=== PATIENT | female | born 1985 | race African-American/Black ===

== ENCOUNTER 2017-02-20 19:43 | Emergency (ER) | payer MEDICAID, OTHER ==
[2017-02-20] MEDS ORDERED: Ketorolac 60 MG/2 ML SDV IM ONE (19:58)
--- NOTE | 2017-02-20 20:02 | EDM.PDOC ---
ED HPI GENERAL MEDICAL PROBLEM - General Chief Complaint: Back Pain or Injury Stated Complaint: BACK PAIN Time Seen by Provider: 02/20/17 19:56 - History of Present Illness INITIAL COMMENTS - FREE TEXT/NARRATIVE: HISTORY AND PHYSICAL: History of present illness: Patient 31-year-old female presents a concern of mid upper back pain related sleeping on a pallet that she may due to her recent move here she denies numbness weakness incontinence or retention bowel or bladder other concern. Review of systems: As per history of present illness and below otherwise all systems reviewed and negative. Past medical history: As per history of present illness and as reviewed below otherwise noncontributory. Surgical history: As per history of present illness and as reviewed below otherwise noncontributory. Social history: No reported history of drug or alcohol abuse. Family history: As per history of present illness and as reviewed below otherwise noncontributory. Physical exam: HEENT: Atraumatic, normocephalic, pupils reactive, negative for conjunctival pallor or scleral icterus, mucous membranes moist, throat clear, neck supple, nontender, trachea midline. Lungs: Clear to auscultation, breath sounds equal bilaterally, chest nontender. Heart: S1S2, regular, negative for clicks, rubs, or JVD. Abdomen: Soft, nondistended, nontender. Negative for masses or hepatosplenomegaly. Negative for costovertebral tenderness. Pelvis: Stable nontender. Genitourinary: Deferred. Rectal: Deferred. Extremities: Atraumatic, negative for cords or calf pain. Neurovascular unremarkable. Neuro: Awake, alert, oriented. Cranial nerves II through XII unremarkable. Cerebellum unremarkable. Motor and sensory unremarkable throughout. Exam nonfocal. Back: Patient has some mild paravertebral tenderness at the level of upper thoracic spine there is no vertebral body or point tenderness patient's able stand on her toes back on her heels the tendon reflexes motor and sensory are normal Diagnostics: None Therapeutics: Toradol 60 mg IM Impression: #1 myofascial thoracic strain Definitive disposition and diagnosis as appropriate pending reevaluation and review of above. Right Back Pain Score (Numeric/FACES): 8 - Related Data Allergies Allergy/AdvReac Type Severity Reaction Status Date / Time No Known Allergies Allergy Verified 02/20/17 19:55 Home Meds: Home Meds . 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 ED EXAM, GENERAL - Physical Exam Exam: See Below (See dictation) Course - Vital Signs Last Recorded V/S: Last Vital Signs Temp 36.8 C 02/20/17 19:51 Pulse 102 H 02/20/17 19:51 Resp 17 02/20/17 19:51 BP 143/91 H 02/20/17 19:51 Pulse Ox 98 02/20/17 19:51 - Orders/Labs/Meds Meds: Medications Discontinued Medications Generic Name Dose Route Start Last Admin Trade Name Huseyin PRN Reason Stop Dose Admin Ketorolac Tromethamine 60 mg 02/20/17 19:58 Toradol IM 02/20/17 19:59 ONETIME ONE Departure - Departure Time of Disposition: 20:02 Disposition: Home, Self-Care 01 Condition: Good Clinical Impression: Thoracic myofascial strain - Discharge Information Referrals: PCP,None [Primary Care Provider] - Additional Instructions: The following information is given to patients seen in the emergency department who are being discharged to home. This information is to outline your options for follow-up care. We provide all patients seen in our emergency department with a follow-up referral. The need for follow-up, as well as the timing and circumstances, are variable depending upon the specifics of your emergency department visit. If you don't have a primary care physician on staff, we will provide you with a referral. We always advise you to contact your personal physician following an emergency department visit to inform them of the circumstance of the visit and for follow-up with them and/or the need for any referrals to a consulting specialist. The emergency department will also refer you to a specialist when appropriate. This referral assures that you have the opportunity for followup care with a specialist. All of these measure are taken in an effort to provide you with optimal care, which includes your followup. Under all circumstances we always encourage you to contact your private physician who remains a resource for coordinating your care. When calling for followup care, please make the office aware that this follow-up is from your recent emergency room visit. If for any reason you are refused follow-up, please contact the [facility] emergency department at and asked to speak to the emergency department charge nurse [facility] [address] [place] [id number] Ultram and Flexeril as prescribed called schedule appointment with primary care clinic about return as needed as discussed[]
== END 2017-02-20 20:20 | disposition home or self-care (01) ==
LOC: MW.ED 19:43
DX: S29.012A Strain of muscle and tendon of back wall of thorax, initial encounter (principal); X58.XXXA Exposure to other specified factors, initial encounter
CPT/HCPCS: 96372; 99283; J1885

== ENCOUNTER 2017-06-02 18:58 | Emergency (ER) | payer MEDICAID, OTHER ==
[2017-06-02] MEDS ORDERED: Proparacaine 0.5% Ophth Soln 15 ML Bottle EYEBOTH ONE (19:20)
--- NOTE | 2017-06-02 19:24 | EDM.PDOC ---
ED HPI GENERAL MEDICAL PROBLEM - General Chief Complaint: Eye Problems Stated Complaint: PAIN/SWELLING EYES Time Seen by Provider: 06/02/17 19:16 - History of Present Illness INITIAL COMMENTS - FREE TEXT/NARRATIVE: HISTORY AND PHYSICAL: History of present illness: The patient is a 31-year-old female who wears contact lenses but cleans them regularly and has eye exams yearly and presents with sudden onset of bilateral eye pain or itching and swelling and eyelid swelling. Patient says she doesn't recall anything getting into her eyes but she was at a friend's house and they have hats but she has never had an issue with pet dander. She said initially it was in her right eye and now it is bilateral. She has removed her contact lenses and she still feels like her eyes are watering and discomforting. She has been rubbing them and they're itchy. She has no other systemic complaints. Review of systems: As per history of present illness and below otherwise all systems reviewed and negative. Past medical history: As per history of present illness and as reviewed below otherwise noncontributory. Surgical history: As per history of present illness and as reviewed below otherwise noncontributory. Social history: No reported history of drug or alcohol abuse. Family history: As per history of present illness and as reviewed below otherwise noncontributory. Physical exam: Gen.: Well-developed mildly overweight female who is nontoxic and vital signs been reviewed by me. HEENT: Atraumatic, normocephalic, pupils reactive, EOMs are intact, sclera are injected bilaterally as are conjunctiva, negative for conjunctival pallor or scleral icterus, mucous membranes moist, throat clear, neck supple, nontender, trachea midline. Visual acuity per nursing is as below. Upper eyelids are swollen bilaterally but there is no periorbital erythema or edema and no crepitus. Lungs: Clear to auscultation, breath sounds equal bilaterally, chest nontender. Heart: S1S2, regular rate and rhythm no overt murmurs Abdomen: Soft, nondistended, nontender. NABS Pelvis: Deferred Genitourinary: Deferred. Rectal: Deferred. Extremities: Atraumatic, negative for cords or calf pain. Neurovascular unremarkable. Neuro: Awake, alert, oriented. Cranial nerves II through XII unremarkable. Cerebellum unremarkable. Motor and sensory unremarkable throughout. Exam nonfocal. Diagnostics: Visual acuity per nursing is 20/20 throughout Therapeutics: Proparacaine After proparacaine was placed fluoroscein stain was performed by me. There is a slight uptake at the inferior rim of the iris bilaterally but more on the left side. Fluoroscein was irrigated out by me. The patient tolerated the procedure well 1950: Case was discussed with Dr. Anne who will see the patient tomorrow at 1 PM in the clinic and does recommend eyedrops and I will prescribe Vigamox Impression: Bilateral eye irritation, rule out iritis, history of contact lens use Definitive disposition and diagnosis as appropriate pending reevaluation and review of above. bilateral eye Pain Score (Numeric/FACES): 6 - Related Data Allergies Allergy/AdvReac Type Severity Reaction Status Date / Time No Known Allergies Allergy Verified 06/02/17 19:01 Home Meds: Home Meds . 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 ED EXAM GENERAL W FULL EYE - Physical Exam Exam: See Below (see dictation) Course - Vital Signs Last Recorded V/S: Last Vital Signs Temp 36.8 C 06/02/17 18:58 Pulse 82 06/02/17 18:58 Resp 18 06/02/17 18:58 BP 167/103 H 06/02/17 18:58 Pulse Ox 97 06/02/17 18:58 - Orders/Labs/Meds Meds: Medications Discontinued Medications Generic Name Dose Route Start Last Admin Trade Name Freq PRN Reason Stop Dose Admin Proparacaine HCl 2 ml 06/02/17 19:20 06/02/17 19:43 Proparacaine 0.5% Ophth Soln EYEBOTH 06/02/17 19:21 2 ml ONETIME ONE Administration Departure - Departure Time of Disposition: 19:53 Disposition: Home, Self-Care 01 Condition: Good Clinical Impression: Uses contact lenses Eye pain Qualifiers: Laterality: bilateral Qualified Code(s): H57.13 - Ocular pain, bilateral - Discharge Information Referrals: PCP,None [Primary Care Provider] - Forms: ED Department Discharge Additional Instructions: The following information is given to patients seen in the emergency department who are being discharged to home. This information is to outline your options for follow-up care. We provide all patients seen in our emergency department with a follow-up referral. The need for follow-up, as well as the timing and circumstances, are variable depending upon the specifics of your emergency department visit. If you don't have a primary care physician on staff, we will provide you with a referral. We always advise you to contact your personal physician following an emergency department visit to inform them of the circumstance of the visit and for follow-up with them and/or the need for any referrals to a consulting specialist. The emergency department will also refer you to a specialist when appropriate. This referral assures that you have the opportunity for followup care with a specialist. All of these measure are taken in an effort to provide you with optimal care, which includes your followup. Under all circumstances we always encourage you to contact your private physician who remains a resource for coordinating your care. When calling for followup care, please make the office aware that this follow-up is from your recent emergency room visit. If for any reason you are refused follow-up, please contact the [facility] emergency department at and ask to speak to the emergency department charge nurse. [facility]--Opthamology [address] [place] [address] Please do not wear contact lenses until you're followed up by the environmental services coordinator. Use all medications as prescribed. He been given Vigamox eyedrops. Dr. Anne was notified of your case and he will see you in his clinic tomorrow across the street at [facility] at 1 PM. Please arrive at 12 :30 PM to register and do the paperwork.. Return to ER as needed and as discussed. These try to avoid bright lights
== END 2017-06-02 20:06 | disposition home or self-care (01) ==
LOC: MW.ED 18:58
DX: H57.13 Ocular pain, bilateral (principal)
CPT/HCPCS: 99283; 99284

== ENCOUNTER 2017-08-01 13:13 | Emergency (ER) | payer MEDICAID ==
[2017-08-01] MEDS ORDERED: Ondansetron 4 MG/2 ML SDV IVPUSH ONE (13:43)
[2017-08-01] MEDS ORDERED: Sodium Chloride 0.9% 1,000 ML IV ONE (13:43)
--- NOTE | 2017-08-01 13:49 | EDM.PDOC ---
ED HPI GENERAL MEDICAL PROBLEM - General Chief Complaint: General Stated Complaint: DIZZY Time Seen by Provider: 08/01/17 13:38 Source of Information: Reports: Patient History Limitations: Reports: No Limitations - History of Present Illness INITIAL COMMENTS - FREE TEXT/NARRATIVE: HISTORY AND PHYSICAL: Dizziness History of present illness: Patient is a 32-year-old female who presents to the emergency room with complaints of dizziness, nausea and one episode of vomiting that occurred early this morning. Just generally feels unwell since waking up. Reports that she missed her last Depo shot in April and has not had a menses cycle since that time but feels that she is not . Has not taken any tests at home. She denies any of her, chills, chest pain or shortness of breath. She denies any abdominal pain real or constipation. Denies any drug or alcohol abuse. Review of systems: As per history of present illness and below otherwise all systems reviewed and negative. Past medical history: As per history of present illness and as reviewed below otherwise noncontributory. Surgical history: As per history of present illness and as reviewed below otherwise noncontributory. Social history: No reported history of drug or alcohol abuse. Family history: As per history of present illness and as reviewed below otherwise noncontributory. Physical exam: General: Well-developed and well-nourished 32-year-old -[place] female. Alert and oriented. Nontoxic appearing and in no acute distress. HEENT: Atraumatic, normocephalic, pupils equal and reactive bilaterally, negative for conjunctival pallor or scleral icterus, mucous membranes moist, throat clear, neck supple, nontender, trachea midline. No drooling or trismus noted. No meningeal signs Lungs: Clear to auscultation, breath sounds equal bilaterally, chest nontender. Heart: S1S2, regular rate and rhythm without overt murmur Abdomen: Soft, nondistended, nontender. Negative for masses or hepatosplenomegaly. Negative for costovertebral tenderness. Pelvis: Stable nontender. Genitourinary: Deferred. Rectal: Deferred. Skin: Intact, warm, dry. No lesions or rashes noted. Extremities: Atraumatic, negative for cords or calf pain. Neurovascular unremarkable. Neuro: Awake, alert, oriented. Cranial nerves II through XII unremarkable. Cerebellum unremarkable. Motor and sensory unremarkable throughout. Exam nonfocal. Notes: Patient is very vague in her symptoms. Well do routine lab work including a urine . She is agreeable to receiving IV fluids and Zofran. Patient is positive for . I did inform her of this. A Quant HCG was done which was 6, 843. Appears she has a UTI. Other lab work was within normal limits. Please her on Augmentin 500 mg one tab twice a day 7 days. A urine culture was added. We discussed care. She states she has had 7 previous pregnancies, she will follow-up with an [employer] EN[employer]. Diagnostics: CBC, CMP, orthostatic vital signs, UA, urine , EKG Therapeutics: Normal saline, Zofran Impression: Dizziness UTI Plan: 1. Please start a vitamin daily. Take your antibiotic as discussed for the UTI. 2. Increase your oral fluids to prevent dehydration. Tylenol is safe to take during for pain management. 3. Establish care with a local [employer] ENGL[employer] for further evaluation of your needs. 4. Return to the ER as needed and as discussed. Definitive disposition and diagnosis as appropriate pending reevaluation and review of above. Onset: Today Duration: Hour(s): Location: Reports: Generalized Lower Abdomen Pain Score (Numeric/FACES): 5 - Related Data Allergies Allergy/AdvReac Type Severity Reaction Status Date / Time No Known Allergies Allergy Verified 08/01/17 13:33 Home Meds: Home Meds . [No Known Home Meds] 02/20/17 [History] Past Medical History - Past Health History Medical/Surgical History: Denies Medical/Surgical History Genitourinary History: Reports: None [employer] History: Reports: - Infectious Disease History Infectious Disease History: Reports: Chicken Pox Social & Family History - Family History Family Medical History: Noncontributory - Tobacco Use Smoking Status *Q: Never Smoker Second Hand Smoke Exposure: No - Caffeine Use Caffeine Use: Reports: Coffee, Soda - Recreational Drug Use Recreational Drug Use: No ED ROS GENERAL - Review of Systems Review Of Systems: ROS reveals no pertinent complaints other than HPI. ED EXAM, GENERAL - Physical Exam Exam: See Below Course - Vital Signs Last Recorded V/S: Last Vital Signs Temp 97.1 F 08/01/17 13:30 Pulse 97 08/01/17 13:30 Resp 20 08/01/17 13:30 BP 139/90 08/01/17 13:30 Pulse Ox 100 08/01/17 13:30 Orthostatic Blood Pressure [ 137/91 Standing] Orthostatic Blood Pressure [ 131/97 Sitting] Orthostatic Blood Pressure [ 132/89 Supine] - Orders/Labs/Meds Orders: Active Orders 24 hr Category Date Time Status EKG Documentation Completion [RC] STAT Care 08/01/17 13:40 Active Orthostatic Vital Signs [RC] ASDIRECTED Care 08/01/17 13:39 Active CULTURE URINE [RM] Stat Lab 08/01/17 15:33 Ordered HCG QUALITATIVE,URINE [URCHEM] Stat Lab 08/01/17 13:50 Ordered INFLUENZA A+B AG SCREEN [RM] Stat Lab 08/01/17 13:50 Ordered UA W/MICROSCOPIC [URIN] Stat Lab 08/01/17 13:50 Ordered Labs: Laboratory Tests 08/01/17 08/01/17 08/01/17 Range/Units 13:50 13:50 14:00 WBC 6.55 (4.0-11.0) K/uL RBC 4.99 (4.30-5.90) M/uL Hgb 15.1 (12.0-16.0) g/dL Hct 42.3 (36.0-46.0) % MCV 84.8 (80.0-98.0) fL MCH 30.3 (27.0-32.0) pg MCHC 35.7 (31.0-37.0) g/dL RDW Std Deviation 40.4 (28.0-62.0) fl RDW Coeff of Allie 13 (11.0-15.0) % Plt Count 414 H (150-400) K/uL MPV 9.70 (7.40-12.00) fL Neut % (Auto) 86.8 H (48.0-80.0) % Lymph % (Auto) 8.7 L (16.0-40.0) % [place] % (Auto) 4.0 (0.0-15.0) % Eos % (Auto) 0.5 (0.0-7.0) % Baso % (Auto) 0.0 (0.0-1.5) % Neut # (Auto) 5.7 (1.4-5.7) K/uL Lymph # (Auto) 0.6 (0.6-2.4) K/uL [place] # (Auto) 0.3 (0.0-0.8) K/uL Eos # (Auto) 0.0 (0.0-0.7) K/uL Baso # (Auto) 0.0 (0.0-0.1) K/uL Nucleated RBC % 0.0 /100WBC Nucleated RBCs # 0 K/uL Sodium (136-145) mmol/L Potassium (3.5-5.1) mmol/L Chloride (98-107) mmol/L Carbon Dioxide (21.0-32.0) mmol/L BUN (7.0-18.0) mg/dL Creatinine (0.6-1.0) mg/dL Est Cr Clr Drug Dosing mL/min Estimated GFR (MDRD) ml/min Glucose (74-106) mg/dL Calcium (8.5-10.1) mg/dL Total Bilirubin (0.2-1.0) mg/dL AST (15-37) IU/L ALT (14-63) IU/L Alkaline Phosphatase (46-116) U/L Total Protein (6.4-8.2) g/dL Albumin (3.4-5.0) g/dL Globulin (2.0-3.5) g/dL Albumin/Globulin Ratio (1.3-2.8) HCG, Quant mIU/mL Urine Color YELLOW Urine Appearance SLT CLOUDY Urine pH 6.0 (5.0-8.0) Ur Specific [place] >= 1.030 (1.001-1.035) Urine Protein 30 (NEGATIVE) mg/dL Urine Glucose (UA) NEGATIVE (NEGATIVE) mg/dL Urine Ketones TRACE H (NEGATIVE) mg/dL Urine Occult Blood NEGATIVE (NEGATIVE) Urine Nitrite NEGATIVE (NEGATIVE) Urine Bilirubin NEGATIVE (NEGATIVE) Urine Urobilinogen 0.2 (<2.0) EU/dL Ur Leukocyte Esterase NEGATIVE (NEGATIVE) Urine RBC RARE (0-2/HPF) Urine WBC 0-3 (0-5/HPF) Ur Epithelial Cells MANY (NONE-FEW) Urine Bacteria FEW (NEGATIVE) Urine HCG, Qual POSITIVE (NEGATIVE) 08/01/17 08/01/17 Range/Units 14:00 14:00 WBC (4.0-11.0) K/uL RBC (4.30-5.90) M/uL Hgb (12.0-16.0) g/dL Hct (36.0-46.0) % MCV (80.0-98.0) fL MCH (27.0-32.0) pg MCHC (31.0-37.0) g/dL RDW Std Deviation (28.0-62.0) fl RDW Coeff of Allie (11.0-15.0) % Plt Count (150-400) K/uL MPV (7.40-12.00) fL Neut % (Auto) (48.0-80.0) % Lymph % (Auto) (16.0-40.0) % [place] % (Auto) (0.0-15.0) % Eos % (Auto) (0.0-7.0) % Baso % (Auto) (0.0-1.5) % Neut # (Auto) (1.4-5.7) K/uL Lymph # (Auto) (0.6-2.4) K/uL [place] # (Auto) (0.0-0.8) K/uL Eos # (Auto) (0.0-0.7) K/uL Baso # (Auto) (0.0-0.1) K/uL Nucleated RBC % /100WBC Nucleated RBCs # K/uL Sodium 139 (136-145) mmol/L Potassium 3.9 (3.5-5.1) mmol/L Chloride 104 (98-107) mmol/L Carbon Dioxide 23.0 (21.0-32.0) mmol/L BUN 9 (7.0-18.0) mg/dL Creatinine 0.9 (0.6-1.0) mg/dL Est Cr Clr Drug Dosing 103.56 mL/min Estimated GFR (MDRD) > 60.0 ml/min Glucose 87 (74-106) mg/dL Calcium 8.7 (8.5-10.1) mg/dL Total Bilirubin 0.5 (0.2-1.0) mg/dL AST 16 (15-37) IU/L ALT 19 (14-63) IU/L Alkaline Phosphatase 91 (46-116) U/L Total Protein 8.2 (6.4-8.2) g/dL Albumin 4.0 (3.4-5.0) g/dL Globulin 4.2 H (2.0-3.5) g/dL Albumin/Globulin Ratio 1.0 L (1.3-2.8) HCG, Quant 6843.0 mIU/mL Urine Color Urine Appearance Urine pH (5.0-8.0) Ur Specific [place] (1.001-1.035) Urine Protein (NEGATIVE) mg/dL Urine Glucose (UA) (NEGATIVE) mg/dL Urine Ketones (NEGATIVE) mg/dL Urine Occult Blood (NEGATIVE) Urine Nitrite (NEGATIVE) Urine Bilirubin (NEGATIVE) Urine Urobilinogen (<2.0) EU/dL Ur Leukocyte Esterase (NEGATIVE) Urine RBC (0-2/HPF) Urine WBC (0-5/HPF) Ur Epithelial Cells (NONE-FEW) Urine Bacteria (NEGATIVE) Urine HCG, Qual (NEGATIVE) Meds: Medications Discontinued Medications Generic Name Dose Route Start Last Admin Trade Name Freq PRN Reason Stop Dose Admin Sodium Chloride 1,000 mls @ 999 mls/hr 08/01/17 13:43 08/01/17 14:02 Normal Saline IV 08/01/17 14:43 999 mls/hr STAT ONE Administration Ondansetron HCl 4 mg 08/01/17 13:43 08/01/17 14:02 Zofran IVPUSH 08/01/17 13:44 4 mg ONETIME ONE Administration Departure - Departure Time of Disposition: 15:39 Disposition: Home, Self-Care 01 Clinical Impression: Dizziness Qualifiers: Weeks of gestation: less than 8 weeks Qualified Code(s): Z3A.01 - Less than 8 weeks gestation of UTI (urinary tract infection) during Qualifiers: Trimester: first trimester Qualified Code(s): O23.41 - Unspecified infection of urinary tract in , first trimester - Discharge Information Instructions: Dizziness, [id number], and Urinary Tract Infection Referrals: PCP,None [Primary Care Provider] - Forms: ED Department Discharge Additional Instructions: The following information is given to patients seen in the emergency department who are being discharged to home. This information is to outline your options for follow-up care. We provide all patients seen in our emergency department with a follow-up referral. The need for follow-up, as well as the timing and circumstances, are variable depending upon the specifics of your emergency department visit. If you don't have a primary care physician on staff, we will provide you with a referral. We always advise you to contact your personal physician following an emergency department visit to inform them of the circumstance of the visit and for follow-up with them and/or the need for any referrals to a consulting specialist. The emergency department will also refer you to a specialist when appropriate. This referral assures that you have the opportunity for follow-up care with a specialist. All of these measure are taken in an effort to provide you with optimal care, which includes your follow-up. Under all circumstances we always encourage you to contact your private physician who remains a resource for coordinating your care. When calling for follow-up care, please make the office aware that this follow-up is from your recent emergency room visit. If for any reason you are refused follow-up, please contact the Emergency Department at and asked to speak to the emergency department charge nurse. Primary Care [address] [place] [id number] 1. Please start a vitamin daily. Take your antibiotic as discussed for the UTI. Zofran as needed for nausea. 2. Increase your oral fluids to prevent dehydration. Tylenol is safe to take during for pain management. 3. Establish care with a local [employer] ENGLISH for further evaluation of your needs. 4. Return to the ER as needed and as discussed. - My Orders Last 24 Hours: My Active Orders 08/01/17 13:39 Orthostatic Vital Signs [RC] ASDIRECTED 08/01/17 13:40 EKG Documentation Completion [RC] STAT 08/01/17 13:50 HCG QUALITATIVE,URINE [URCHEM] Stat INFLUENZA A+B AG SCREEN [RM] Stat UA W/MICROSCOPIC [URIN] Stat 08/01/17 15:33 CULTURE URINE [RM] Stat - Assessment/Plan Last 24 Hours: My Active Orders 08/01/17 13:39 Orthostatic Vital Signs [RC] ASDIRECTED 08/01/17 13:40 EKG Documentation Completion [RC] STAT 08/01/17 13:50 HCG QUALITATIVE,URINE [URCHEM] Stat INFLUENZA A+B AG SCREEN [RM] Stat UA W/MICROSCOPIC [URIN] Stat 08/01/17 15:33 CULTURE URINE [] Stat
[2017-08-01 14:28] LABS: CHLORIDE,CL 104 mmol/L (98-107); SODIUM,NA 139 mmol/L (136-145)
== END 2017-08-01 15:53 | disposition home or self-care (01) ==
LOC: MW.ED 13:13
DX: N39.0 Urinary tract infection, site not specified (principal); Z33.1 Pregnant state, incidental
CPT/HCPCS: 36415; 80053; 81001; 81025; 84702; 85025; 87086; 87804; 93005; 96361; 96374; 99284; J2405; J7040; 99283

== ENCOUNTER 2019-01-04 11:46 | Emergency (ER) | payer MEDICAID ==
--- NOTE | 2019-01-04 12:24 | EDM.PDOC ---
ED HPI GENERAL MEDICAL PROBLEM - General Chief Complaint: Eye Problems Stated Complaint: EYE COMPLAINT Time Seen by Provider: 01/04/19 12:19 Source of Information: Reports: Patient History Limitations: Reports: No Limitations - History of Present Illness INITIAL COMMENTS - FREE TEXT/NARRATIVE: History of present illness: []Patient started having redness and irritation to her eye yesterday with goopy drainage she woke up with crusting and more irritation. She denies any trauma or any other problems. She states she normally wears contacts but did not wear them today. Review of systems: As per history of present illness and below otherwise all systems reviewed and negative. Past medical history: As per history of present illness and as reviewed below otherwise noncontributory. Surgical history: As per history of present illness and as reviewed below otherwise noncontributory. Social history: No reported history of drug or alcohol abuse. Family history: As per history of present illness and as reviewed below otherwise noncontributory. Physical exam: General: Well developed, well nourished in NAD HEENT: Atraumatic, normocephalic, pupils reactive, positive for for right conjunctival erythema , mucous membranes moist, throat clear, neck supple, nontender, trachea midline. Lungs: Clear to auscultation, breath sounds equal bilaterally, chest nontender. Heart: S1S2, regular, negative for clicks, rubs, or JVD. Abdomen: NABS, Soft, nondistended, nontender. Negative for masses or hepatosplenomegaly. Negative for costovertebral tenderness. Pelvis: Stable nontender. Genitourinary: Deferred. Rectal: Deferred. Extremities: Atraumatic, negative for cords or calf pain. Neurovascular unremarkable. Neuro: Awake, alert, oriented. Cranial nerves II through XII unremarkable. Cerebellum unremarkable. Motor and sensory unremarkable throughout. Exam nonfocal. Skin:warm and dry Diagnostics: none Therapeutics: none ED Course: stable Impression: Conjunctivitis right eye Prescriptions: Erythromycin ointment Plan: Take meds as directed, follow up with your primary care physician, return to ER if symptoms worsen or change. Definitive disposition and diagnosis as appropriate pending reevaluation and review of above. 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: Endocrine/Metabolic History: Reports: Obesity/BMI 30+, Other (See Below) Other Endocrine/Metabolic History: gestational diabetes with a previous Oncologic (Cancer) History: Reports: None - Infectious Disease History Infectious Disease History: Reports: Chicken Pox - Past Surgical History Cardiovascular Surgical History: Reports: None Endocrine Surgical History: Reports: None Social & Family History - Family History Family Medical History: Noncontributory Other Cardiac Family History: Mother and maternal grandmother with HTN - Tobacco Use Smoking Status *Q: Never Smoker - Caffeine Use Caffeine Use: Reports: Coffee, Soda - Recreational Drug Use Recreational Drug Use: No ED ROS GENERAL - Review of Systems Review Of Systems: See Below ED EXAM GENERAL W FULL EYE - Physical Exam Exam: See Below Course - Vital Signs Last Recorded V/S: Last Vital Signs Temp 97.7 F 01/04/19 11:59 Pulse 97 01/04/19 11:59 Resp 18 01/04/19 11:59 BP 151/100 H 01/04/19 11:59 Pulse Ox 96 01/04/19 11:59 Departure - Departure Time of Disposition: 12:24 Disposition: Home, Self-Care 01 Condition: Good Clinical Impression: Conjunctivitis Qualifiers: Conjunctivitis type: acute Acute conjunctivitis type: unspecified Laterality: right Qualified Code(s): H10.31 - Unspecified acute conjunctivitis, right eye - Discharge Information *PRESCRIPTION DRUG MONITORING PROGRAM REVIEWED*: Not Applicable *COPY OF PRESCRIPTION DRUG MONITORING REPORT IN PATIENT ZACH: Not Applicable Prescriptions: Erythromycin Base [Erythromycin 0.5% Ophth Oint] 1 applic OP Q12H #1 tube Instructions: Bacterial Conjunctivitis, [id number] Referrals: PCP,Unknown [Primary Care Provider] - Forms: ED Department Discharge Additional Instructions: The following information is given to patients seen in the emergency department who are being discharged to home. This information is to outline your options for follow-up care. We provide all patients seen in our emergency department with a follow-up referral. The need for follow-up, as well as the timing and circumstances, are variable depending upon the specifics of your emergency department visit. If you don't have a primary care physician on staff, we will provide you with a referral. We always advise you to contact your personal physician following an emergency department visit to inform them of the circumstance of the visit and for follow-up with them and/or the need for any referrals to a consulting specialist. The emergency department will also refer you to a specialist when appropriate. This referral assures that you have the opportunity for follow-up care with a specialist. All of these measure are taken in an effort to provide you with optimal care, which includes your follow-up. Under all circumstances we always encourage you to contact your private physician who remains a resource for coordinating your care. When calling for follow-up care, please make the office aware that this follow-up is from your recent emergency room visit. If for any reason you are refused follow-up, please contact the [facility] Emergency Department at and asked to speak to the emergency department charge nurse. Take meds as directed, follow up with your primary care physician, return to ER if symptoms worsen or change. [address] [id number]
== END 2019-01-04 12:34 | disposition home or self-care (01) ==
LOC: MW.ED 11:46
DX: H10.31 Unspecified acute conjunctivitis, right eye (principal); I10 Essential (primary) hypertension; Z91.018 Allergy to other foods; Z79.899 Other long term (current) drug therapy
CPT/HCPCS: 99282; 99283

== ENCOUNTER 2019-04-05 21:52 | Emergency (ER) | payer MEDICAID ==
--- NOTE | 2019-04-05 22:14 | EDM.PDOC ---
ED HPI GENERAL MEDICAL PROBLEM - General Stated Complaint: LIGHT HEADED Time Seen by Provider: 04/05/19 22:07 - History of Present Illness INITIAL COMMENTS - FREE TEXT/NARRATIVE: HISTORY AND PHYSICAL: History of present illness: Patient is a healthy 33-year-old female with no GI history who says that she has a funny rumbling and movement in her abdomen which she is concerned about and is not sure if she is . The patient has no fevers chills nausea vomiting urinary complaints vaginal bleeding or discharge and says that this feeling she is having in her abdomen is not discomforting but she says it feels like something is moving like a baby. She has not had a period since she started her Depakote shot back in 2018 as this interrupts her menses. She says she is compliant with getting her shots and does follow with [facility]. She has no flank pain no fevers no chills no chest pain or shortness of breath. The patient says she was afraid to do a home test and is here for evaluation. She says in the past her home test have been negative and then she sees the doctor and they are positive so she is worried. She has been eating and drinking normally. Review of systems: As per history of present illness and below otherwise all systems reviewed and negative. Past medical history: As per history of present illness and as reviewed below otherwise noncontributory. Surgical history: As per history of present illness and as reviewed below otherwise noncontributory. Social history: No reported history of drug or alcohol abuse. Family history: As per history of present illness and as reviewed below otherwise noncontributory. Physical exam: HEENT: Atraumatic, normocephalic, pupils reactive, negative for conjunctival pallor or scleral icterus, mucous membranes moist, throat clear, neck supple, nontender, trachea midline. Lungs: Clear to auscultation, breath sounds equal bilaterally, chest nontender. Heart: S1S2, regular, negative for clicks, rubs, or JVD. Abdomen: Soft, nondistended, nontender. Bowel sounds are normoactive and there is no tympany no rebound no guarding on examination negative for masses or hepatosplenomegaly. Negative for costovertebral tenderness. Pelvis: Stable nontender. Genitourinary: Deferred. Rectal: Deferred. Extremities: Atraumatic, negative for cords or calf pain. Neurovascular unremarkable. Neuro: Awake, alert, oriented. Cranial nerves II through XII unremarkable. Cerebellum unremarkable. Motor and sensory unremarkable throughout. Exam nonfocal. Diagnostics: Quantitative hCG Therapeutics: [] 2333: Testing and case was discussed with Dr. Amador and she will see the patient in clinic in the next several days. She would like the patient to call and schedule that follow-up and they can properly date this . The patient was made aware of her lab tests and that she is approximately 5 or 6 weeks by this hormone level and that she should continue to monitor symptoms and call for that follow-up appointment. Impression: Medical screening exam, early Definitive disposition and diagnosis as appropriate pending reevaluation and review of above. 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: Endocrine/Metabolic History: Reports: Obesity/BMI 30+, Other (See Below) Other Endocrine/Metabolic History: gestational diabetes with a previous Oncologic (Cancer) History: Reports: None - Infectious Disease History Infectious Disease History: Reports: Chicken Pox - Past Surgical History Cardiovascular Surgical History: Reports: None Endocrine Surgical History: Reports: None Social & Family History - Family History Family Medical History: Noncontributory Other Cardiac Family History: Mother and maternal grandmother with HTN - Caffeine Use Caffeine Use: Reports: Coffee, Soda ED ROS GENERAL - Review of Systems Review Of Systems: Comprehensive ROS is negative, except as noted in HPI. ED EXAM, GENERAL - Physical Exam Exam: See Below (see dictation) Course - Vital Signs Last Recorded V/S: Last Vital Signs Temp 36.2 C 04/05/19 22:14 Pulse 105 H 04/05/19 22:14 Resp 18 04/05/19 22:14 BP Pulse Ox 98 04/05/19 22:14 - Orders/Labs/Meds Labs: Laboratory Tests 04/05/19 Range/Units 22:25 HCG, Quant 4092.0 mIU/mL Departure - Departure Time of Disposition: 23:38 Disposition: Home, Self-Care 01 Condition: Good Clinical Impression: Encounter for medical screening examination, Early stage of - Discharge Information Referrals: Yuliana Kahn DO [Primary Care Provider] - Additional Instructions: The following information is given to patients seen in the emergency department who are being discharged to home. This information is to outline your options for follow-up care. We provide all patients seen in our emergency department with a follow-up referral. The need for follow-up, as well as the timing and circumstances, are variable depending upon the specifics of your emergency department visit. If you don't have a primary care physician on staff, we will provide you with a referral. We always advise you to contact your personal physician following an emergency department visit to inform them of the circumstance of the visit and for follow-up with them and/or the need for any referrals to a consulting specialist. The emergency department will also refer you to a specialist when appropriate. This referral assures that you have the opportunity for followup care with a specialist. All of these measure are taken in an effort to provide you with optimal care, which includes your followup. Under all circumstances we always encourage you to contact your private physician who remains a resource for coordinating your care. When calling for followup care, please make the office aware that this follow-up is from your recent emergency room visit. If for any reason you are refused follow-up, please contact the [facility] emergency department at and ask to speak to the emergency department charge nurse. [address] [address] Hydration and call the clinic in the morning and schedule a follow-up appointment with your provider to properly date this and to start care. Return to ER as needed and as discussed Sepsis Event Note - Focused Exam Vital Signs: Vital Signs Temp Pulse Resp Pulse Ox 04/05/19 22:14 36.2 C 105 H 18 98 Date Exam was Performed: 04/05/19 Time Exam was Performed: 23:36
== END 2019-04-05 23:45 | disposition home or self-care (01) ==
LOC: MW.ED 21:52
DX: Z32.01 Encounter for pregnancy test, result positive (principal); O10.911 Unspecified pre-existing hypertension complicating pregnancy, first trimester; O99.211 Obesity complicating pregnancy, first trimester; Z91.018 Allergy to other foods
CPT/HCPCS: 36415; 84702; 99282; 99283

== ENCOUNTER 2019-07-19 05:40 | Inpatient (IN) | payer OTHER ==
[2019-07-19] MEDS ORDERED: Terbutaline 1 MG/ML SDV SUBCUT PRN (14:38)
[2019-07-19] MEDS ORDERED: Misoprostol 25 MCG (1/4 of 100 MCG) Tab VAG PRN ×2 (14:38)
[2019-07-19] MEDS ORDERED: Ondansetron 4 MG/2 ML SDV IVPUSH PRN (14:38)
[2019-07-19] MEDS ORDERED: Oxytocin/0.9 % Sodium Chloride 30 UNIT/500 ML BAG IV SCH ×2 (14:45→19:45)
[2019-07-19] MEDS ORDERED: Tranexamic Acid 1,000 MG in Sodium Chloride 0.9% 100 ML IV PRN (19:35)
[2019-07-19] MEDS ORDERED: Lidocaine 1% 50 ML MDV INJECT PRN (19:35)
[2019-07-19] MEDS ORDERED: Sodium Chloride 0.9% 10 ML SDV IV PRN (19:35)
[2019-07-19] MEDS ORDERED: Sodium Chloride 0.9% 2.5 ML Syringe FLUSH PRN (19:35)
[2019-07-19] MEDS ORDERED: Nalbuphine 10 MG/1 ML Vial IVPUSH PRN (19:35)
[2019-07-19] MEDS ORDERED: Water For Irrigation,Sterile 1,000 ML Container IRR PRN (19:35)
[2019-07-19] MEDS ORDERED: Butorphanol 1 MG/ML SDV IVPUSH PRN (19:35)
[2019-07-19] MEDS ORDERED: Misoprostol 200 MCG Tab PO PRN (19:35)
[2019-07-19] MEDS ORDERED: Methylergonovine 0.2 MG/1 ML Amp IM PRN (19:35)
[2019-07-19] MEDS ORDERED: Carboprost Tromethamine 250 MCG/1 ML Amp IM PRN (19:35)
[2019-07-19] MEDS: Lactated Ringers 1,000 ML IV SCH ×2 (20:04→21:59)
[2019-07-19 20:24] LABS: BLOOD UREA NITROGEN,BUN 7 mg/dL (7.0-18.0); CHLORIDE,CL 105 mmol/L (98-107); GLUCOSE RANDOM 93 mg/dL (74-106); POTASSIUM,K 3.7 mmol/L (3.5-5.1); SODIUM,NA 139 mmol/L (136-145)
[2019-07-19] MEDS ORDERED: Bupivicaine/fentaNYL/NS 250 ML ONE (21:18)
--- NOTE | 2019-07-19 22:03 | PCM.PREANE ---
Preanesthetic Assessment - Anesthesia/Transfusion/Family Hx Anesthesia History: Prior Anesthesia Without Reaction Transfusion History: No Prior Transfusion(s) Intubation History: Unknown - Review of Systems General: No Symptoms Pulmonary: No Symptoms, Shortness of Breath, Other (some SOB with stairs and when walk - r/t ) Cardiovascular: No Symptoms, Other (chronic HTN) Gastrointestinal: No Symptoms Neurological: No Symptoms Other: Reports: Easy Bleeding - Physical Assessment NPO Status Date: 07/19/19 NPO Status Time: 12:30 Height: 6 ft 3 in Weight: 125.645 kg ASA Class: 2 Mental Status: Alert & Oriented x3 Airway Class: Mallampati = 3 Dentition: Reports: Missing Tooth/Teeth Thyro-Mental Finger Breadths: 4 Mouth Opening Finger Breadths: 2 ROM/Head Extension: Full Lungs: Clear to Auscultation, Normal Respiratory Effort Cardiovascular: Regular Rate, Regular Rhythm - Lab Values: Laboratory Last Values WBC 7.33 K/uL (4.0-11.0) 07/19/19 14:20 RBC 4.29 M/uL (4.30-5.90) L 07/19/19 14:20 Hgb 12.9 g/dL (12.0-16.0) 07/19/19 14:20 Hct 37.2 % (36.0-46.0) 07/19/19 14:20 MCV 86.7 fL (80.0-98.0) 07/19/19 14:20 MCH 30.1 pg (27.0-32.0) 07/19/19 14:20 MCHC 34.7 g/dL (31.0-37.0) 07/19/19 14:20 RDW Std Deviation 42.2 fl (28.0-62.0) 07/19/19 14:20 RDW Coeff of Allie 13 % (11.0-15.0) 07/19/19 14:20 Plt Count 286 K/uL (150-400) 07/19/19 14:20 MPV 10.50 fL (7.40-12.00) 07/19/19 14:20 Nucleated RBC % 0.0 /100WBC 07/19/19 14:20 Nucleated RBCs # 0 K/uL 07/19/19 14:20 Sodium 139 mmol/L (136-145) 07/19/19 14:20 Potassium 3.7 mmol/L (3.5-5.1) 07/19/19 14:20 Chloride 105 mmol/L (98-107) 07/19/19 14:20 Carbon Dioxide 23.0 mmol/L (21.0-32.0) 07/19/19 14:20 BUN 7 mg/dL (7.0-18.0) 07/19/19 14:20 Creatinine 0.5 mg/dL (0.6-1.0) L 07/19/19 14:20 Est Cr Clr Drug Dosing 200.22 mL/min 07/19/19 14:20 Estimated GFR (MDRD) > 60.0 ml/min 07/19/19 14:20 Glucose 93 mg/dL (74-106) 07/19/19 14:20 Uric Acid 3.9 mg/dL (2.6-7.2) 07/19/19 14:20 Calcium 8.6 mg/dL (8.5-10.1) 07/19/19 14:20 Total Bilirubin 0.3 mg/dL (0.2-1.0) 07/19/19 14:20 AST 17 IU/L (15-37) 07/19/19 14:20 ALT 22 IU/L (14-63) 07/19/19 14:20 Alkaline Phosphatase 162 U/L (46-116) H 07/19/19 14:20 Total Protein 6.5 g/dL (6.4-8.2) 07/19/19 14:20 Albumin 2.8 g/dL (3.4-5.0) L 07/19/19 14:20 Globulin 3.7 g/dL (2.6-4.0) 07/19/19 14:20 Albumin/Globulin Ratio 0.8 (0.9-1.6) L 07/19/19 14:20 Ur Random Creatinine 157.9 mg/dL 07/19/19 19:55 U Random Total Protein 20.4 mg/dL (<11.9) H 07/19/19 19:55 Protein/Creatinin Ratio 0.1 07/19/19 19:55 Blood Type O POSITIVE 07/19/19 14:20 Antibody Screen NEGATIVE 07/19/19 14:20 - Allergies Allergies/Adverse Reactions: Allergies Allergy/AdvReac Type Severity Reaction Status Date / Time cherries Allergy Rash Uncoded 06/20/19 19:52 - Acknowledgements Anesthesia Type Planned: General Anesthesia, Spinal (plan for epidural, discussed possible need for spinal or general anesthesia in event of emergency) , Epidural Pt an Appropriate Candidate for the Planned Anesthesia: Yes Alternatives and Risks of Anesthesia Discussed w Pt/Guardian: Yes Pt/Guardian Understands and Agrees with Anesthesia Plan: Yes PreAnesthesia Questionnaire - Past Health History Medical/Surgical History: Denies Medical/Surgical History Cardiovascular History: Reports: Hypertension, Other (See Below) Other Cardiovascular History: HTN- induced Genitourinary History: Reports: 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: Psychiatric History: Reports: None Endocrine/Metabolic History: Reports: Obesity/BMI 30+, Other (See Below) Other Endocrine/Metabolic History: gestational diabetes with a previous Oncologic (Cancer) History: Reports: None - Infectious Disease History Infectious Disease History: Reports: Chicken Pox - Past Surgical History Cardiovascular Surgical History: Reports: None Endocrine Surgical History: Reports: None - SUBSTANCE USE Smoking Status *Q: Never Smoker Recreational Drug Use History: No - HOME MEDS Home Medications: Home Meds NIFEdipine [Procardia] 04/05/19 [History] medroxyPROGESTERone [Depo-Provera Contraceptive] 04/05/19 [History] Vits #93/Iron Fum/FA [ Formula Tablet] 1 tab PO DAILY 05/13/19 [History] - CURRENT (IN HOUSE) MEDS Current Meds: Current Medications Butorphanol Tartrate (Stadol) 1 mg IVPUSH Q1H PRN PRN Reason: Pain Carboprost Tromethamine (Hemabate Ds) 250 mcg IM ASDIRECTED PRN PRN Reason: Post Hemorrhage Oxytocin/Sodium Chloride (Oxytocin 30 Unit/500 Ml-Ns) 30 unit in 500 mls @ 2 mls/hr IV TITRATE LOTUS; Protocol Last Titration: 07/19/19 20:56 Dose: 4 munits/min, 4 mls/hr Tranexamic Acid 1,000 mg/ (Sodium Chloride) 110 mls @ 660 mls/hr IV ONETIME PRN PRN Reason: Bleeding Lactated Ringer's (Ringers, Lactated) 1,000 mls @ 150 mls/hr IV ASDIRECTED LOTUS Last Admin: 07/19/19 21:59 Dose: 500 mls/hr Oxytocin/Sodium Chloride (Oxytocin 30 Unit/500 Ml-Ns) 30 unit in 500 mls @ 500 mls/hr IV TITRATE LOTUS Lidocaine HCl (Xylocaine 1%) 50 ml INJECT ONETIME PRN PRN Reason: Laceration repair Methylergonovine Maleate (Methergine) 0.2 mg IM ASDIRECTED PRN PRN Reason: Post Hemorrhage Misoprostol (Cytotec) 25 mcg VAG ONETIME PRN PRN Reason: Cervical Ripening Last Admin: 07/19/19 15:46 Dose: 25 mcg Misoprostol (Cytotec) 25 mcg VAG Q4H PRN PRN Reason: Cervical Ripening Misoprostol (Cytotec) 200 mcg PO ONETIME PRN PRN Reason: Post Hemorrhage Nalbuphine HCl (Nubain) 10 mg IVPUSH Q1H PRN PRN Reason: Pain (severe 7-10) Ondansetron HCl (Zofran) 4 mg IVPUSH Q4H PRN PRN Reason: Nausea/Vomiting Sodium Chloride (Saline Flush) 2.5 ml FLUSH ASDIRECTED PRN PRN Reason: Keep Vein Open Sodium Chloride (Normal Saline) 10 ml IV ASDIRECTED PRN PRN Reason: IV Use Sterile Water (Sterile Water For Irrigation) 1,000 ml IRR ASDIRECTED PRN PRN Reason: delivery Terbutaline Sulfate (Brethine) 0.25 mg SUBCUT ASDIRECTED PRN PRN Reason: Tacysystole Discontinued Medications Fentanyl/Bupivacaine HCl (Fentanyl/Bupivacaine/Ns 2 Mcg-0.125% 250 Ml) Confirm Administered Dose 250 mls @ as directed .ROUTE .[facility] Stop: 07/19/19 21:19
[2019-07-19] MEDS ORDERED: Lidocaine 2% 5 ML SDV ONE (22:22)
[2019-07-20] MEDS: Lactated Ringers 1,000 ML IV SCH ×2 (00:24→04:11)
[2019-07-20] MEDS ORDERED: Bupivicaine/fentaNYL/NS 0 ML ONE (04:29)
[2019-07-20] MEDS ORDERED: Benzocaine/Menthol 20%-0.5% Spray 78 GM Cannister TOP PRN (06:08)
[2019-07-20] MEDS ORDERED: Bisacodyl 10 MG Supp RECTAL PRN (06:08)
[2019-07-20] MEDS ORDERED: Ibuprofen 400 MG Tab PO PRN (06:08)
[2019-07-20] MEDS ORDERED: Acetaminophen 500 MG Tab PO PRN ×2 (06:08)
[2019-07-20] MEDS ORDERED: Witch Hazel Medicated Pads 40/Jar TOP PRN (06:08)
[2019-07-20] MEDS ORDERED: Docusate Sodium 100 MG Cap PO PRN (06:08)
[2019-07-20] MEDS ORDERED: oxyCODONE 5 MG Tab PO PRN (06:08)
[2019-07-20] MEDS ORDERED: Lanolin 100% Cream 7 GM Tube TOP PRN (06:08)
--- NOTE | 2019-07-20 06:13 | PCM.DEL ---
L & D Note - General Info Date of Service: 07/20/19 - Delivery Note Labor: Augmented by ARM, Augmented by Oxytocin Cervical Ripening Method: Misoprostil Delivery Outcome: Livebirth Presentation: Left Occiput Anterior (KELLY) Nuchal Cord: None Anesthesia Type: Epidural Episiotomy Type: None Laceration: None Placenta: Spontaneous Cord: 3 Vessels Estimated Blood Loss: 300 Resuscitation Needed: No Score 1 min: 8 Score 5 min: 9 Delivery Comments (Free Text/Narrative):: Live male delivered at 540am , 8/9 weight pending - General Info Date of Service: 07/20/19 - Patient Data Weight - Most Recent: 125.645 kg I&O - Last 24 Hours: Intake & Output 07/19/19 07/19/19 07/20/19 14:59 22:59 06:59 Intake Total 1000 2000 Balance 1000 2000 Lab Results Last 24 Hours: Laboratory Results - last 24 hr 07/19/19 07/19/19 07/19/19 Range/Units 14:20 14:20 14:20 WBC 7.33 (4.0-11.0) K/uL RBC 4.29 L (4.30-5.90) M/uL Hgb 12.9 (12.0-16.0) g/dL Hct 37.2 (36.0-46.0) % MCV 86.7 (80.0-98.0) fL MCH 30.1 (27.0-32.0) pg MCHC 34.7 (31.0-37.0) g/dL RDW Std Deviation 42.2 (28.0-62.0) fl RDW Coeff of Allie 13 (11.0-15.0) % Plt Count 286 (150-400) K/uL MPV 10.50 (7.40-12.00) fL Nucleated RBC % 0.0 /100WBC Nucleated RBCs # 0 K/uL Sodium 139 (136-145) mmol/L Potassium 3.7 (3.5-5.1) mmol/L Chloride 105 (98-107) mmol/L Carbon Dioxide 23.0 (21.0-32.0) mmol/L BUN 7 (7.0-18.0) mg/dL Creatinine 0.5 L (0.6-1.0) mg/dL Est Cr Clr Drug Dosing 200.22 mL/min Estimated GFR (MDRD) > 60.0 ml/min Glucose 93 (74-106) mg/dL Uric Acid 3.9 (2.6-7.2) mg/dL Calcium 8.6 (8.5-10.1) mg/dL Total Bilirubin 0.3 (0.2-1.0) mg/dL AST 17 (15-37) IU/L ALT 22 (14-63) IU/L Alkaline Phosphatase 162 H (46-116) U/L Total Protein 6.5 (6.4-8.2) g/dL Albumin 2.8 L (3.4-5.0) g/dL Globulin 3.7 (2.6-4.0) g/dL Albumin/Globulin Ratio 0.8 L (0.9-1.6) Ur Random Creatinine mg/dL U Random Total Protein (<11.9) mg/dL Protein/Creatinin Ratio Blood Type O POSITIVE Antibody Screen NEGATIVE 07/19/19 Range/Units 19:55 WBC (4.0-11.0) K/uL RBC (4.30-5.90) M/uL Hgb (12.0-16.0) g/dL Hct (36.0-46.0) % MCV (80.0-98.0) fL MCH (27.0-32.0) pg MCHC (31.0-37.0) g/dL RDW Std Deviation (28.0-62.0) fl RDW Coeff of Allie (11.0-15.0) % Plt Count (150-400) K/uL MPV (7.40-12.00) fL Nucleated RBC % /100WBC Nucleated RBCs # K/uL Sodium (136-145) mmol/L Potassium (3.5-5.1) mmol/L Chloride (98-107) mmol/L Carbon Dioxide (21.0-32.0) mmol/L BUN (7.0-18.0) mg/dL Creatinine (0.6-1.0) mg/dL Est Cr Clr Drug Dosing mL/min Estimated GFR (MDRD) ml/min Glucose (74-106) mg/dL Uric Acid (2.6-7.2) mg/dL Calcium (8.5-10.1) mg/dL Total Bilirubin (0.2-1.0) mg/dL AST (15-37) IU/L ALT (14-63) IU/L Alkaline Phosphatase (46-116) U/L Total Protein (6.4-8.2) g/dL Albumin (3.4-5.0) g/dL Globulin (2.6-4.0) g/dL Albumin/Globulin Ratio (0.9-1.6) Ur Random Creatinine 157.9 mg/dL U Random Total Protein 20.4 H (<11.9) mg/dL Protein/Creatinin Ratio 0.1 Blood Type Antibody Screen Med Orders - Current: Current Medications Acetaminophen (Tylenol Extra Strength) 500 mg PO Q4H PRN PRN Reason: Pain Acetaminophen (Tylenol Extra Strength) 1,000 mg PO Q4H PRN PRN Reason: Pain Benzocaine/Menthol (Dermoplast Pain Relief 20%-0.5% [place]) 78 gm TOP ASDIRECTED PRN PRN Reason: Perineal Comfort Measure Bisacodyl (Dulcolax) 10 mg RECTAL ONETIME PRN PRN Reason: Constipation Butorphanol Tartrate (Stadol) 1 mg IVPUSH Q1H PRN PRN Reason: Pain Carboprost Tromethamine (Hemabate Ds) 250 mcg IM ASDIRECTED PRN PRN Reason: Post Hemorrhage Last Admin: 07/20/19 05:53 Dose: 250 mcg Docusate Sodium (Colace) 100 mg PO BID PRN PRN Reason: Constipation Emollient Ointment (Lansinoh Hpa) 0 gm TOP ASDIRECTED PRN PRN Reason: Sore Nipples Oxytocin/Sodium Chloride (Oxytocin 30 Unit/500 Ml-Ns) 30 unit in 500 mls @ 2 mls/hr IV TITRATE LOTUS; Protocol Last Titration: 07/20/19 01:41 Dose: 14 munits/min, 14 mls/hr Tranexamic Acid 1,000 mg/ (Sodium Chloride) 110 mls @ 660 mls/hr IV ONETIME PRN PRN Reason: Bleeding Lactated Ringer's (Ringers, Lactated) 1,000 mls @ 150 mls/hr IV ASDIRECTED LOTUS Last Admin: 07/20/19 04:11 Dose: 500 mls/hr Oxytocin/Sodium Chloride (Oxytocin 30 Unit/500 Ml-Ns) 30 unit in 500 mls @ 500 mls/hr IV TITRATE LOTUS Ibuprofen (Motrin) 400 mg PO Q4H PRN PRN Reason: Pain Ibuprofen (Motrin) 800 mg PO Q6H PRN PRN Reason: Pain Lidocaine HCl (Xylocaine 1%) 50 ml INJECT ONETIME PRN PRN Reason: Laceration repair Methylergonovine Maleate (Methergine) 0.2 mg IM ASDIRECTED PRN PRN Reason: Post Hemorrhage Misoprostol (Cytotec) 25 mcg VAG ONETIME PRN PRN Reason: Cervical Ripening Last Admin: 07/19/19 15:46 Dose: 25 mcg Misoprostol (Cytotec) 25 mcg VAG Q4H PRN PRN Reason: Cervical Ripening Misoprostol (Cytotec) 200 mcg PO ONETIME PRN PRN Reason: Post Hemorrhage Nalbuphine HCl (Nubain) 10 mg IVPUSH Q1H PRN PRN Reason: Pain (severe 7-10) Ondansetron HCl (Zofran) 4 mg IVPUSH Q4H PRN PRN Reason: Nausea/Vomiting Oxycodone HCl (Oxycodone) 5 mg PO Q2H PRN PRN Reason: Pain Sodium Chloride (Saline Flush) 2.5 ml FLUSH ASDIRECTED PRN PRN Reason: Keep Vein Open Sodium Chloride (Normal Saline) 10 ml IV ASDIRECTED PRN PRN Reason: IV Use Sterile Water (Sterile Water For Irrigation) 1,000 ml IRR ASDIRECTED PRN PRN Reason: delivery Last Admin: 07/20/19 05:38 Dose: 1,000 ml Terbutaline Sulfate (Brethine) 0.25 mg SUBCUT ASDIRECTED PRN PRN Reason: Tacysystole Witch Inge (Tucks) 1 pad TOP ASDIRECTED PRN PRN Reason: comfort care Discontinued Medications Fentanyl/Bupivacaine HCl (Fentanyl/Bupivacaine/Ns 2 Mcg-0.125% 250 Ml) Confirm Administered Dose 250 mls @ as directed .ROUTE .[employer] Stop: 07/19/19 21:19 Fentanyl/Bupivacaine HCl (Fentanyl/Bupivacaine/Ns 2 Mcg-0.125% 250 Ml) Confirm Administered Dose 250 mls @ as directed .ROUTE [facility] Stop: 07/20/19 04:30 Lidocaine (Xylocaine-Mpf 2%) Confirm Administered Dose 5 ml .ROUTE .[facility]-MED ONE Stop: 07/19/19 22:23 - Problem List & Annotations (1) Vaginal delivery SNOMED Code(s): 193964370 Code(s): O80 - ENCOUNTER FOR FULL-TERM UNCOMPLICATED DELIVERY Status: Acute Current Visit: Yes - Problem List Review Problem List Initiated/Reviewed/Updated: Yes - My Orders Last 24 Hours: My Active Orders 07/19/19 14:20 RPR (SYPHILIS SERO) W/ RFLX [REF] Routine 07/19/19 14:38 Ondansetron [Zofran] 4 mg IVPUSH Q4H PRN Terbutaline [Brethine] 0.25 mg SUBCUT ASDIRECTED PRN miSOPROStoL [Cytotec] 25 mcg VAG ONETIME PRN miSOPROStoL [Cytotec] 25 mcg VAG Q4H PRN 07/19/19 14:40 Patient Status [ADT] Routine Bedrest Bathroom Privileges [RC] ASDIRECTED Communication Order [RC] ASDIRECTED Communication Order [RC] ASDIRECTED Communication Order [RC] ASDIRECTED Non Stress Test [RC] PER UNIT ROUTINE Notify Provider [RC] PRN Notify Provider [RC] PRN Notify Provider [RC] STAT Oxygen Therapy [RC] ASDIRECTED Up ad Nidia [RC] ASDIRECTED Vaginal Exam [RC] Click to Edit Vaginal Exam [RC] PRN Vital Signs [RC] PER UNIT ROUTINE Vital Signs [RC] PER UNIT ROUTINE 07/19/19 14:45 Oxytocin/0.9 % Sodium Chloride [Oxytocin 30 Unit/500 ML-NS] 30 unit in 500 ml IV TITRATE Medication Administration Instruction [OM.PC] Q3H 07/19/19 19:35 Patient Status [ADT] Routine Heart Tones [RC] CONTINUOUS Non Stress Test [RC] PER UNIT ROUTINE May Shower [RC] ASDIRECTED Notify Provider [RC] PRN Vaginal Exam [RC] PRN Vital Signs [RC] PER UNIT ROUTINE Butorphanol [Stadol] 1 mg IVPUSH Q1H PRN Carboprost Tromethamine [Hemabate DS] 250 mcg IM ASDIRECTED PRN Lidocaine 1% [Xylocaine 1%] 50 ml INJECT ONETIME PRN Methylergonovine [Methergine] 0.2 mg IM ASDIRECTED PRN Nalbuphine [Nubain] 10 mg IVPUSH Q1H PRN Sodium Chloride 0.9% [Normal Saline] 10 ml IV ASDIRECTED PRN Sodium Chloride 0.9% [Saline Flush] 2.5 ml FLUSH ASDIRECTED PRN Tranexamic Acid [Cyklokapron] 1,000 mg Sodium Chloride 0.9% [Normal Saline] 100 ml IV ONETIME Water For Irrigation,Sterile [Sterile Water for Irrigation] 1,000 ml IRR ASDIRECTED PRN miSOPROStoL [Cytotec] 200 mcg PO ONETIME PRN Peripheral IV Insertion Adult [OM.PC] Routine 07/19/19 19:45 Lactated Ringers [Ringers, Lactated] 1,000 ml IV ASDIRECTED Oxytocin/0.9 % Sodium Chloride [Oxytocin 30 Unit/500 ML-NS] 30 unit in 500 ml IV TITRATE 07/20/19 06:08 Patient Status [ADT] Routine May Shower [RC] ASDIRECTED Up ad Nidia [RC] ASDIRECTED Vital Signs [RC] PER UNIT ROUTINE Acetaminophen [Tylenol Extra Strength] 1,000 mg PO Q4H PRN Acetaminophen [Tylenol Extra Strength] 500 mg PO Q4H PRN Benzocaine/Menthol [Dermoplast Pain Relief 20%-0.5% [place]] 78 gm TOP ASDIRECTED PRN Docusate Sodium [Colace] 100 mg PO BID PRN Ibuprofen [Motrin] 400 mg PO Q4H PRN Ibuprofen [Motrin] 800 mg PO Q6H PRN Lanolin [Lansinoh HPA] See Dose Instructions TOP ASDIRECTED PRN bisacodyL [Dulcolax] 10 mg RECTAL ONETIME PRN oxyCODONE 5 mg PO Q2H PRN witch Inge [Tucks] 1 pad TOP ASDIRECTED PRN Assess Lochia [WOMSER] Per Unit Routine Assess Uterine Involution [WOMSER] Per Unit Routine Peripheral IV Discontinue [OM.PC] Routine Resuscitation Status Routine 07/21/19 05:11 HEMOGLOBIN/HEMATOCRIT,HH [HEME] Timed
--- NOTE | 2019-07-20 07:02 | OR ---
SURGEON: DIVYA LENNON DATE OF PROCEDURE: 07/20/2019 PREOPERATIVE DIAGNOSIS: A 34-year-old, G8, P6-1-0-7, at 39 weeks and 2 days, admitted for induction of labor secondary to chronic hypertension, not on meds. POSTOPERATIVE DIAGNOSIS: A 34-year-old, G8, P6-1-0-7, at 39 weeks and 2 days, admitted for induction of labor secondary to chronic hypertension, not on meds. PROCEDURE: Normal spontaneous vaginal delivery. ESTIMATED BLOOD LOSS: 300. IV FLUIDS: Pitocin running. ANESTHESIA: Epidural. NOTES AND FINDINGS: Live male delivered at 5:40 a.m. score is 8 and 9. Weight is 3680 g. BRIEF HISTORY ABOUT THE PATIENT: She is a 34-year-old, G8, P6-1-0-7, at 39 weeks and 2 days, who was brought in for induction for chronic hypertension. Induction of labor was started with Cytotec. She received Pitocin. She was about 4 to 5 cm dilated. AROM was done. After amniotomy blood clot noted and some blood tinge amniotic fluid. She made rapid progress. She became fully dilated. The patient being fully dilated, she was encouraged to push. DESCRIPTION OF PROCEDURE: With the patient being fully dilated, she was encouraged to push. She delivered the head subsequently by the anterior and posterior shoulder and the body of the infant was also delivered without difficulty. Infant was placed on maternal abdomen. The cord was clamped and cut and the placenta was delivered without any difficulty via controlled cord traction. Hemabate was given. Perineum was inspected, noted to be intact. Uterine massage was done. The bleeding was noted to be minimal. The patient was left in Labor and Delivery room in stable condition. KARTHIKEYAN HOSKINS /[id number] AVTAR
[2019-07-20] MEDS: Ibuprofen 800 MG Tab PO PRN ×2 (09:31→20:18)
[2019-07-20] MEDS: Labetalol 100 MG Tab PO SCH (21:35)
[2019-07-21] MEDS: Ibuprofen 800 MG Tab PO PRN ×2 (04:15→16:21)
--- NOTE | 2019-07-21 05:53 | PCM.POSTAN ---
POST ANESTHESIA ASSESSMENT - MENTAL STATUS Mental Status: Alert (No anesthesia complications pt stable. VSS), Oriented - VITAL SIGNS Vital Signs: Last Vital Signs Temp 97.4 F 07/21/19 04:27 Pulse 89 07/21/19 04:27 Resp 17 07/21/19 04:27 BP 128/73 07/21/19 04:27 Pulse Ox 99 07/21/19 04:27 - RESPIRATORY Respiratory Status: Respiratory Rate WNL, Airway Patent, O2 Saturation Stable - CARDIOVASCULAR CV Status: Pulse Rate WNL, Blood Pressure Stable - GASTROINTESTINAL GI Status: No Symptoms - POST OP HYDRATION Hydration Status: Adequate & Stable
[2019-07-21] MEDS: Labetalol 100 MG Tab PO SCH ×2 (09:15→20:15)
--- NOTE | 2019-07-21 18:37 | PCM.PNPP ---
- General Info Date of Service: 07/21/19 Subjective Update: Patient seen at bedside , she denies headache , RUQ pain and BV She was started on 200mg of labetalol bid due to high BPs She denies any complains Functional Status: Reports: Pain Controlled, Tolerating Diet, Ambulating, Urinating - Review of Systems General: Reports: No Symptoms HEENT: Reports: No Symptoms Pulmonary: Reports: No Symptoms Cardiovascular: Reports: No Symptoms Gastrointestinal: Reports: No Symptoms Genitourinary: Reports: No Symptoms Musculoskeletal: Reports: No Symptoms Skin: Reports: No Symptoms Neurological: Reports: No Symptoms Psychiatric: Reports: No Symptoms - General Info Date of Service: 07/21/19 - Patient Data Vital Signs - Most Recent: Last Vital Signs Temp 36.8 C 07/21/19 17:00 Pulse 76 07/21/19 17:00 Resp 18 07/21/19 17:00 BP 139/95 H 07/21/19 17:00 Pulse Ox 97 07/21/19 17:00 Weight - Most Recent: 125.645 kg Lab Results - Last 24 Hours: Laboratory Results - last 24 hr 07/21/19 Range/Units 04:53 Hgb 11.2 L (12.0-16.0) g/dL Hct 32.9 L (36.0-46.0) % Med Orders - Current: Current Medications Acetaminophen (Tylenol Extra Strength) 500 mg PO Q4H PRN PRN Reason: Pain Acetaminophen (Tylenol Extra Strength) 1,000 mg PO Q4H PRN PRN Reason: Pain Benzocaine/Menthol (Dermoplast Pain Relief 20%-0.5% [place]) 78 gm TOP ASDIRECTED PRN PRN Reason: Perineal Comfort Measure Bisacodyl (Dulcolax) 10 mg RECTAL ONETIME PRN PRN Reason: Constipation Butorphanol Tartrate (Stadol) 1 mg IVPUSH Q1H PRN PRN Reason: Pain Carboprost Tromethamine (Hemabate Ds) 250 mcg IM ASDIRECTED PRN PRN Reason: Post Hemorrhage Last Admin: 07/20/19 05:53 Dose: 250 mcg Docusate Sodium (Colace) 100 mg PO BID PRN PRN Reason: Constipation Last Admin: 07/20/19 20:18 Dose: 100 mg Emollient Ointment (Lansinoh Hpa) 0 gm TOP ASDIRECTED PRN PRN Reason: Sore Nipples Oxytocin/Sodium Chloride (Oxytocin 30 Unit/500 Ml-Ns) 30 unit in 500 mls @ 2 mls/hr IV TITRATE [facility]; Protocol Last Titration: 07/20/19 01:41 Dose: 14 munits/min, 14 mls/hr Tranexamic Acid 1,000 mg/ (Sodium Chloride) 110 mls @ 660 mls/hr IV ONETIME PRN PRN Reason: Bleeding Lactated Ringer's (Ringers, Lactated) 1,000 mls @ 150 mls/hr IV ASDIRECTED [facility] Last Admin: 07/20/19 04:11 Dose: 500 mls/hr Oxytocin/Sodium Chloride (Oxytocin 30 Unit/500 Ml-Ns) 30 unit in 500 mls @ 500 mls/hr IV TITRATE [facility] Last Admin: 07/20/19 06:37 Dose: 250 mls/hr Ibuprofen (Motrin) 400 mg PO Q4H PRN PRN Reason: Pain Ibuprofen (Motrin) 800 mg PO Q6H PRN PRN Reason: Pain Last Admin: 07/21/19 16:21 Dose: 800 mg Labetalol HCl (Normodyne) 200 mg PO BID [facility] Last Admin: 07/21/19 09:15 Dose: 200 mg Lidocaine HCl (Xylocaine 1%) 50 ml INJECT ONETIME PRN PRN Reason: Laceration repair Methylergonovine Maleate (Methergine) 0.2 mg IM ASDIRECTED PRN PRN Reason: Post Hemorrhage Misoprostol (Cytotec) 25 mcg VAG ONETIME PRN PRN Reason: Cervical Ripening Last Admin: 07/19/19 15:46 Dose: 25 mcg Misoprostol (Cytotec) 25 mcg VAG Q4H PRN PRN Reason: Cervical Ripening Misoprostol (Cytotec) 200 mcg PO ONETIME PRN PRN Reason: Post Hemorrhage Nalbuphine HCl (Nubain) 10 mg IVPUSH Q1H PRN PRN Reason: Pain (severe 7-10) Ondansetron HCl (Zofran) 4 mg IVPUSH Q4H PRN PRN Reason: Nausea/Vomiting Oxycodone HCl (Oxycodone) 5 mg PO Q2H PRN PRN Reason: Pain Sodium Chloride (Saline Flush) 2.5 ml FLUSH ASDIRECTED PRN PRN Reason: Keep Vein Open Sodium Chloride (Normal Saline) 10 ml IV ASDIRECTED PRN PRN Reason: IV Use Sterile Water (Sterile Water For Irrigation) 1,000 ml IRR ASDIRECTED PRN PRN Reason: delivery Last Admin: 07/20/19 05:38 Dose: 1,000 ml Terbutaline Sulfate (Brethine) 0.25 mg SUBCUT ASDIRECTED PRN PRN Reason: Tacysystole [place] (Tucks) 1 pad TOP ASDIRECTED PRN PRN Reason: comfort care Discontinued Medications Fentanyl/Bupivacaine HCl (Fentanyl/Bupivacaine/Ns 2 Mcg-0.125% 250 Ml) Confirm Administered Dose 250 mls @ as directed .ROUTE .STK-MED ONE Stop: 07/19/19 21:19 Fentanyl/Bupivacaine HCl (Fentanyl/Bupivacaine/Ns 2 Mcg-0.125% 250 Ml) Confirm Administered Dose 250 mls @ as directed .ROUTE .STK-MED ONE Stop: 07/20/19 04:30 Lidocaine (Xylocaine-Mpf 2%) Confirm Administered Dose 5 ml .ROUTE .STK-MED ONE Stop: 07/19/19 22:23 - Infant Interaction Support Person: Significant Other - Recovery Exam Fundal Tone: Firm Fundal Level: 1 Fingerbreadths Below Umbilicus Fundal Placement: Midline Lochia Amount: Scant Lochia Color: Rubra/Red Perineum Description: Intact, Minimal Bruising/Swelling Bladder Status: Voiding Urinary Elimination: Voided - Exam General: Alert, Oriented HEENT: Pupils Equal, Pupils Reactive Lungs: Clear to Auscultation Cardiovascular: Regular Rate, Regular Rhythm GI/Abdominal Exam: Normal Bowel Sounds Extremities: Normal Inspection Neurological: No New Focal Deficit Psy/Mental Status: Alert, Normal Affect - Problem List & Annotations (1) Vaginal delivery SNOMED Code(s): 741398906 Code(s): O80 - ENCOUNTER FOR FULL-TERM UNCOMPLICATED DELIVERY Status: Acute Current Visit: Yes - Problem List Review Problem List Initiated/Reviewed/Updated: Yes - Assessment Assessment:: 34yo P8 s/p , gestational hypertension on labetalol 200mg bid Patient is doing well on medication bp ranges from 130s - 140/80 - 90 , will target 120 - 130/80s to 90 I will increase her labetalol to 300mg bid I will have her follow up in clinic on Thursday for BP check - Plan Plan:: Preclampsia precautions given Labetalol 300mg bid Discharge home
== END 2019-07-21 20:50 | disposition home or self-care (01) | DRG 807 ==
LOC: MW.OB 05:40 → OBSVTOIN 07-20 05:40 → MW.OB 07-20 09:57
PROVIDERS: ADMIT Obstetrics & Gynecology; ATTEND Obstetrics & Gynecology
PROC: 10E0XZZ Delivery of Products of Conception, External Approach (ICD-10-PCS; principal; 2019-07-20)
PROC: 10907ZC Drainage of Amniotic Fluid, Therapeutic from Products of Conception, Via Natural or Artificial Opening (ICD-10-PCS; 2019-07-20)
PROC: 3E0R3BZ Introduction of Anesthetic Agent into Spinal Canal, Percutaneous Approach (ICD-10-PCS; 2019-07-20)
DX: O16.4 Unspecified maternal hypertension, complicating childbirth (principal); Z37.0 Single live birth; Z3A.39 39 weeks gestation of pregnancy; O99.214 Obesity complicating childbirth; E66.9 Obesity, unspecified; Z91.018 Allergy to other foods
CPT/HCPCS: 36415; 51702; 59025; 59409; 80053; 82570; 84156; 84550; 85014; 85018; 85027; 86592; 86593; 86850; 86900; 86901; A9270-GY; J2590; J7120

== ENCOUNTER 2019-07-24 00:27 | Emergency (ER) | payer SELFPAY ==
[2019-07-24] MEDS ORDERED: Lidocaine 1% with EPINEPHrine 1:100,000 20 ML MDV INJECT ONE (00:48)
--- NOTE | 2019-07-24 01:08 | EDM.PDOC ---
ED [facility] GENERAL MEDICAL PROBLEM - General Chief Complaint: ENT Problem Stated Complaint: TOOTHACHE Time Seen by Provider: 07/24/19 01:05 Source of Information: Reports: Patient History Limitations: Reports: No Limitations - History of Present Illness INITIAL COMMENTS - FREE TEXT/NARRATIVE: Patient is a 34-year-old female with recent delivery 3 days ago. Patient has chief complaint of left-sided dental pain. Patient states she has had chronic issues with this tooth and was supposed to get a extraction and then had changes of insurance. Patient states the pain is been bothering her since yesterday and is in the lower left mandible with radiation to the left ear. Pain is worse with chewing. Patient denies any associated fevers, chills, headaches, shortness of breath. In addition, patient's blood pressure is noted to be elevated. Patient states she takes labetalol 300 mg twice daily for blood pressure control which was started at the time of her delivery. Pmhx: Obesity, gestational hypertension Pshx: None Family Hx: noncontributory Smoking history? no Etoh use? none Drug use? none In addition to that documented in the HPI above, the additional ROS was obtained : Constitutional: Denies fevers or chills Eyes: Denies vision changes ENMT: Denies sore throat CV: Denies chest pain Resp: Denies SOB GI: Denies vomiting or diarrhea : Denies painful urination MSK: Denies recent trauma Skin: Denies new rashes Neuro: Denies new numbness or tingling or weakness Endocrine: Denies unexpected weight loss Heme: Denies bleeding disorders I have reviewed the triage vital signs Const: Well nourished, well developed, appears stated age Eyes: PERRL, no conjunctival injection HENT: Poor dentition with cracked tooth in her posterior left molar. No noted fluctuance around the tooth. No trismus. No submandibular swelling. NCAT, Neck supple without meningismus CV: RRR, Warm, well-perfused extremities RESP: CTAB, Unlabored respiratory effort GI: soft, non-tender, non-distended, no masses MSK: No gross deformities appreciated Skin: Warm, dry. No rashes Neuro: Alert, car hostler II-XII grossly intact. Sensation and motor function of extremities grossly intact. Psych: Appropriate mood and affect Assessment and plan: Patient is 34-year-old female presenting with dental pain without evidence of abscess. Patient had dental block performed in the emergency room with improvement of pain. In addition, patient started on penicillin for possible dental infection and instructed to follow-up with dentist as an outpatient. Patient was incidentally to be found hypertensive. Patient initially with blood pressures in the 170s over 100. Labs were performed but did not demonstrate any evidence of thrombocytopenia, transaminitis, renal dysfunction, proteinuria. Case is discussed with on-call PRINT DEVEL[employer] Dr. Espinal who recommended giving the patient hydralazine and monitoring for improvement of blood pressure. Patient was given a total of 20 mg of hydralazine with improvement of blood pressure to 131/80. Patient not demonstrate any further symptoms. Patient has a follow-up appointment on Thursday. Patient instructed to monitor blood pressure at home and return if blood pressure began to be elevated persistently over the 140s. All questions were addressed and answered. Patient agrees with plan. lower L teeth Pain Score (Numeric/FACES): 9 - Related Data Allergies Allergy/AdvReac Type Severity Reaction Status Date / Time cherries Allergy Rash Uncoded 07/24/19 00:43 Home Meds: Home Meds Vits #93/Iron Fum/FA [ Formula Tablet] 1 tab PO DAILY 05/13/19 [History] Labetalol [Normodyne] 300 mg PO BID 30 Days #60 tablet 07/21/19 [Rx] Penicillin V Potassium 500 mg PO Q8HR #30 tab 07/24/19 [Rx] Past Medical History - Past Health History Medical/Surgical History: Denies Medical/Surgical History Cardiovascular History: Reports: Hypertension, Other (See Below) Other Cardiovascular History: HTN- induced Genitourinary History: Reports: None PRINT DEVELOPER History: Reports: Psychiatric History: Reports: None Endocrine/Metabolic History: Reports: Obesity/BMI 30+, Other (See Below) Other Endocrine/Metabolic History: gestational diabetes with a previous Oncologic (Cancer) History: Reports: None - Infectious Disease History Infectious Disease History: Reports: Chicken Pox - Past Surgical History Cardiovascular Surgical History: Reports: None Endocrine Surgical History: Reports: None Social & Family History - Family History Family Medical History: Noncontributory Other Cardiac Family History: Mother and maternal grandmother with HTN - Tobacco Use Smoking Status *Q: Never Smoker - Caffeine Use Caffeine Use: Reports: Soda - Recreational Drug Use Recreational Drug Use: No ED ROS ENT - Review of Systems Review Of Systems: See Below ED EXAM, ENT - Physical Exam Exam: See Below Course - Vital Signs Last Recorded V/S: Last Vital Signs Temp 35.8 C L 07/24/19 00:39 Pulse 89 07/24/19 02:45 Resp 18 07/24/19 00:39 BP 149/91 H 07/24/19 02:51 Pulse Ox 99 07/24/19 00:39 - Orders/Labs/Meds Labs: Laboratory Tests 07/24/19 07/24/19 07/24/19 Range/Units 00:55 01:00 01:00 WBC 7.05 (4.0-11.0) K/uL RBC 3.77 L (4.30-5.90) M/uL Hgb 11.4 L (12.0-16.0) g/dL Hct 32.8 L (36.0-46.0) % MCV 87.0 (80.0-98.0) fL MCH 30.2 (27.0-32.0) pg MCHC 34.8 (31.0-37.0) g/dL RDW Std Deviation 40.2 (28.0-62.0) fl RDW Coeff of Allie 13 (11.0-15.0) % Plt Count 323 (150-400) K/uL MPV 9.80 (7.40-12.00) fL Neut % (Auto) 67.9 (48.0-80.0) % Lymph % (Auto) 21.1 (16.0-40.0) % [place] % (Auto) 8.4 (0.0-15.0) % Eos % (Auto) 2.3 (0.0-7.0) % Baso % (Auto) 0.3 (0.0-1.5) % Neut # (Auto) 4.8 (1.4-5.7) K/uL Lymph # (Auto) 1.5 (0.6-2.4) K/uL [place] # (Auto) 0.6 (0.0-0.8) K/uL Eos # (Auto) 0.2 (0.0-0.7) K/uL Baso # (Auto) 0.0 (0.0-0.1) K/uL Sodium 143 (136-145) mmol/L Potassium 3.4 L (3.5-5.1) mmol/L Chloride 107 (98-107) mmol/L Carbon Dioxide 27.3 (21.0-32.0) mmol/L BUN 8 (7.0-18.0) mg/dL Creatinine 0.7 (0.6-1.0) mg/dL Est Cr Clr Drug Dosing TNP Estimated GFR (MDRD) > 60.0 ml/min Glucose 97 (74-106) mg/dL Calcium 8.5 (8.5-10.1) mg/dL Magnesium 1.4 L (1.8-2.4) mg/dL Total Bilirubin 0.3 (0.2-1.0) mg/dL AST 22 (15-37) IU/L ALT 37 (14-63) IU/L Alkaline Phosphatase 121 H (46-116) U/L Total Protein 6.4 (6.4-8.2) g/dL Albumin 2.5 L (3.4-5.0) g/dL Globulin 3.9 (2.6-4.0) g/dL Albumin/Globulin Ratio 0.6 L (0.9-1.6) Urine Color YELLOW Urine Appearance SLT CLOUDY Urine pH 7.0 (5.0-8.0) Ur Specific [place] 1.015 (1.001-1.035) Urine Protein NEGATIVE (NEGATIVE) mg/dL Urine Glucose (UA) NEGATIVE (NEGATIVE) mg/dL Urine Ketones NEGATIVE (NEGATIVE) mg/dL Urine Occult Blood LARGE H (NEGATIVE) Urine Nitrite NEGATIVE (NEGATIVE) Urine Bilirubin NEGATIVE (NEGATIVE) Urine Urobilinogen 0.2 (<2.0) EU/dL Ur Leukocyte Esterase NEGATIVE (NEGATIVE) Urine RBC 12-15 (0-2/HPF) Urine WBC 0-1 (0-5/HPF) Ur Epithelial Cells FEW (NONE-FEW) Urine Bacteria RARE (NEGATIVE) Meds: Medications Discontinued Medications Generic Name Dose Route Start Last Admin Trade Name Freq PRN Reason Stop Dose Admin Hydralazine HCl 10 mg 07/24/19 01:39 07/24/19 01:47 Apresoline PO 07/24/19 01:40 10 mg ONETIME ONE Administration Hydralazine HCl 10 mg 07/24/19 02:22 07/24/19 02:51 Apresoline PO 04/05/20 02:23 10 mg ONETIME ONE Administration Lidocaine/Epinephrine 20 ml 07/24/19 00:48 07/24/19 01:48 Xylocaine 1% With Epinephrine 1:100,000 INJECT 07/24/19 00:49 20 ml ONETIME ONE Administration Departure - Departure Time of Disposition: 03:35 Disposition: Home, Self-Care 01 Clinical Impression: Pain, dental, Hypertension - Discharge Information Prescriptions: Penicillin V Potassium 500 mg PO Q8HR #30 tab Instructions: Hypertension, Adult Referrals: Yuliana Kahn DO [Primary Care Provider] - Forms: ED Department Discharge Additional Instructions: The following information is given to patients seen in the emergency department who are being discharged to home. This information is to outline your options for follow-up care. We provide all patients seen in our emergency department with a follow-up referral. The need for follow-up, as well as the timing and circumstances, are variable depending upon the specifics of your emergency department visit. If you don't have a primary care physician on staff, we will provide you with a referral. We always advise you to contact your personal physician following an emergency department visit to inform them of the circumstance of the visit and for follow-up with them and/or the need for any referrals to a consulting specialist. The emergency department will also refer you to a specialist when appropriate. This referral assures that you have the opportunity for follow-up care with a specialist. All of these measure are taken in an effort to provide you with optimal care, which includes your follow-up. Under all circumstances we always encourage you to contact your private physician who remains a resource for coordinating your care. When calling for follow-up care, please make the office aware that this follow-up is from your recent emergency room visit. If for any reason you are refused follow-up, please contact the [facility] Emergency Department at and asked to speak to the emergency department charge nurse. Sepsis Event Note - Evaluation Sepsis Screening Result: No Definite Risk - Focused Exam Vital Signs: Vital Signs Temp Pulse Resp BP BP Pulse Ox 07/24/19 02:51 149/91 H 07/24/19 02:45 89 147/91 H 07/24/19 01:47 154/100 H 07/24/19 01:25 154/87 H 07/24/19 00:39 35.8 C L 88 18 171/97 H 99 Date Exam was Performed: 07/24/19 Time Exam was Performed: 03:41
[2019-07-24 01:29] LABS: BLOOD UREA NITROGEN,BUN 8 mg/dL (7.0-18.0); CARBON DIOXIDE,CO2 27.3 mmol/L (21.0-32.0); CHLORIDE,CL 107 mmol/L (98-107); GLUCOSE RANDOM 97 mg/dL (74-106); POTASSIUM,K 3.4 mmol/L (3.5-5.1); SODIUM,NA 143 mmol/L (136-145)
[2019-07-24] MEDS ORDERED: hydrALAZINE 10 MG Tab PO ONE ×2 (01:39→02:22)
[2019-07-24] MEDS ORDERED: Acetaminophen 325 MG Tab PO ONE (03:45)
[2019-07-24] MEDS ORDERED: Acetaminophen 325 MG Tab ONE (03:46)
== END 2019-07-24 03:48 | disposition home or self-care (01) ==
LOC: MW.ED 00:27
DX: O99.63 Diseases of the digestive system complicating the puerperium (principal); K08.89 Other specified disorders of teeth and supporting structures; O13.5 Gestational [pregnancy-induced] hypertension without significant proteinuria, complicating the puerperium; O99.215 Obesity complicating the puerperium; E66.9 Obesity, unspecified; Z91.018 Allergy to other foods
CPT/HCPCS: 36415; 64400; 80053; 81001; 83735; 85025; 99283; A9270

== ENCOUNTER 2019-07-24 12:29 | Emergency (ER) | payer SELFPAY ==
[2019-07-24] MEDS ORDERED: cefTRIAXone 1 GM Vial IM ONE (12:55)
[2019-07-24] MEDS ORDERED: Lidocaine 1% PF 2 ML SDV INJECT ONE (12:57)
--- NOTE | 2019-07-24 13:07 | EDM.PDOC ---
ED HPI GENERAL MEDICAL PROBLEM - General Chief Complaint: General Stated Complaint: TOOTH ACHE Time Seen by Provider: 07/24/19 12:30 Source of Information: Reports: Patient History Limitations: Reports: No Limitations - History of Present Illness INITIAL COMMENTS - FREE TEXT/NARRATIVE: HISTORY AND PHYSICAL: History of present illness: Patient is a 34-year-old female who presents to the ED today with concern of increased swelling of her tooth and infection of her tooth. Patient states she was seen in the ED at about 1 PM last night and was given penicillin and has taken a total of 2 doses of this medication. Patient states when she woke up this morning she had increased swelling of her tooth so decided to come to be evaluated in the ED. Patient did deliver via on 07/20/2019 and discharged on 300mg Labetalol BID for post hypertension and has an appointment tomorrow [facility]. Patient states that this morning she took a total of 600 mg of labetalol (rather than the prescribed 300mg), as she had a headache this morning at 8:30 and states she decided to take 2 of the pills due to this. Patient states she did not check her blood pressure at time of taking the medication. Patient states that she had resolution of her headache but continues to have tooth pain. Patient denies fever, chills, chest pain, shortness of breath, or cough. Denies headache, neck stiff ness, change in vision, syncope, or near syncope. Denies nausea, vomiting, abdominal pain, diarrhea, constipation, or dysuria. Has not noted any blood in urine or stool. Patient has been eating and drinking appropriately. Review of systems: As per history of present illness and below otherwise all systems reviewed and negative. Past medical history: As per history of present illness and as reviewed below otherwise noncontributory. Surgical history: As per history of present illness and as reviewed below otherwise noncontributory. Social history: See social history for further information Family history: As per history of present illness and as reviewed below otherwise noncontributory. Physical exam: General: Patient is alert, oriented, and in no acute distress. Patient sitting comfortably on exam table. HEENT: Generalized poor dentition. There is a cracked tooth in the posterior left molar with surrounding edema of the gums without evidence of a drainable abscess. The adjacent mandible is moderately edematous with pain to palpation of this area without crepitus. Otherwise, atraumatic, normocephalic, pupils equal and reactive bilaterally, negative for conjunctival pallor or scleral icterus, mucous membranes moist, TMs normal bilaterally, throat clear, neck supple, nontender, trachea midline. No drooling or trismus noted. No meningeal signs. No hot potato voice noted. Lungs: Clear to auscultation, breath sounds equal bilaterally, chest nontender. Heart: S1S2, regular rate and rhythm without overt murmur Abdomen: Soft, nondistended, nontender. Negative for masses or hepatosplenomegaly. Negative for costovertebral tenderness. Pelvis: Stable nontender. Genitourinary: Deferred. Rectal: Deferred. Skin: Intact, warm, dry. No lesions or rashes noted. Extremities: Atraumatic, negative for cords or calf pain. Neurovascular unremarkable. Neuro: Awake, alert, oriented. Cranial nerves II through XII unremarkable. Cerebellum unremarkable. Motor and sensory unremarkable throughout. Exam nonfocal. Notes: During prior ED visit last night, patient found to be hypertensive approx 170/ 90 and treated with hydralazine and monitored/worked up in the ED with improvement of BP and discharged with close BP monitoring instructions with OBGYN follow up Thursday. I did call and speak to Dr. Espinal, OBGYN scullion chief, and thoroughly discuss patients case and workup. Dr. Espinal does feel that there could be a component of pain increasing blood pressure and to increase patients Labetalol dose to ( Labetalol 300mg TID) and patient to take 3rd dose of Labetalol later tonight and patient has an appointment for follow up tomorrow morning. Dr. Espinal states she will also call patient later today for BP recheck. Discussed the importance for follow up with both OBGYN as scheduled and also to establish care with a dentist for definitive treatment. Voices understanding and is agreeable to plan of care. Denies any further questions or concerns at this time. Diagnostics: CBC, CMP, UA, Lactate, LDH, CXR, Soft tissue neck CT w cont Therapeutics: Rocephin IV, Toradol 30mg IV, Solumedrol IV Prescription: None Impression: Dental infection Post gestational hypertension Plan: 1. Continue to take prior antibiotic as prescribed to you already as directed. Also use tylenol and ibuprofen as needed for pain and discomfort. 2. Close monitoring of blood pressure as discussed. 3. Follow up with both OBGYN and a dentist as discussed. Return to the ED as needed and as discussed. Definitive disposition and diagnosis as appropriate pending reevaluation and review of above. Left Jaw Pain Score (Numeric/FACES): 8 - Related Data Allergies Allergy/AdvReac Type Severity Reaction Status Date / Time cherries Allergy Rash Uncoded 07/24/19 12:43 Home Meds: Home Meds Vits #93/Iron Fum/FA [ Formula Tablet] 1 tab PO DAILY 05/13/19 [History] Labetalol [Normodyne] 300 mg PO BID 30 Days #60 tablet 07/21/19 [Rx] Penicillin V Potassium 500 mg PO Q8HR #30 tab 07/24/19 [Rx] Past Medical History - Past Health History Medical/Surgical History: Denies Medical/Surgical History Cardiovascular History: Reports: Hypertension, Other (See Below) Other Cardiovascular History: HTN- induced Genitourinary History: Reports: None [employer] History: Reports: Psychiatric History: Reports: None Endocrine/Metabolic History: Reports: Obesity/BMI 30+, Other (See Below) Other Endocrine/Metabolic History: gestational diabetes with a previous Oncologic (Cancer) History: Reports: None - Infectious Disease History Infectious Disease History: Reports: Chicken Pox - Past Surgical History Cardiovascular Surgical History: Reports: None Endocrine Surgical History: Reports: None Social & Family History - Family History Family Medical History: Noncontributory Other Cardiac Family History: Mother and maternal grandmother with HTN - Tobacco Use Smoking Status *Q: Never Smoker Second Hand Smoke Exposure: No - Caffeine Use Caffeine Use: Reports: Coffee - Recreational Drug Use Recreational Drug Use: No ED ROS GENERAL - Review of Systems Review Of Systems: Comprehensive ROS is negative, except as noted in HPI. ED EXAM, GENERAL - Physical Exam Exam: See Below (see dictation) Course - Vital Signs Last Recorded V/S: Last Vital Signs Temp 97.6 F 07/24/19 12:40 Pulse 87 07/24/19 13:50 Resp 18 07/24/19 12:40 BP 159/85 H 07/24/19 13:50 Pulse Ox 94 L 07/24/19 13:50 - Orders/Labs/Meds Labs: Laboratory Tests 04/09/0607/24/19 07/24/19 Range/Units 13:06 13:06 13:42 WBC 8.32 (4.0-11.0) K/uL RBC 3.97 L (4.30-5.90) M/uL Hgb 11.9 L (12.0-16.0) g/dL Hct 34.4 L (36.0-46.0) % MCV 86.6 (80.0-98.0) fL MCH 30.0 (27.0-32.0) pg MCHC 34.6 (31.0-37.0) g/dL RDW Std Deviation 42.1 (28.0-62.0) fl RDW Coeff of Allie 13 (11.0-15.0) % Plt Count 349 (150-400) K/uL MPV 9.70 (7.40-12.00) fL Neut % (Auto) 78.7 (48.0-80.0) % Lymph % (Auto) 13.5 L (16.0-40.0) % [place] % (Auto) 6.6 (0.0-15.0) % Eos % (Auto) 1.2 (0.0-7.0) % Baso % (Auto) 0.0 (0.0-1.5) % Neut # (Auto) 6.6 H (1.4-5.7) K/uL Lymph # (Auto) 1.1 (0.6-2.4) K/uL [place] # (Auto) 0.6 (0.0-0.8) K/uL Eos # (Auto) 0.1 (0.0-0.7) K/uL Baso # (Auto) 0.0 (0.0-0.1) K/uL Nucleated RBC % 0.0 /100WBC Nucleated RBCs # 0 K/uL Sodium 140 (136-145) mmol/L Potassium 3.6 (3.5-5.1) mmol/L Chloride 105 (98-107) mmol/L Carbon Dioxide 25.5 (21.0-32.0) mmol/L BUN 7 (7.0-18.0) mg/dL Creatinine 0.7 (0.6-1.0) mg/dL Est Cr Clr Drug Dosing 130.68 mL/min Estimated GFR (MDRD) > 60.0 ml/min Glucose 85 (74-106) mg/dL Uric Acid 4.9 (2.6-7.2) mg/dL Calcium 8.4 L (8.5-10.1) mg/dL Total Bilirubin 0.4 (0.2-1.0) mg/dL AST 20 (15-37) IU/L ALT 35 (14-63) IU/L Alkaline Phosphatase 127 H (46-116) U/L Lactate Dehydrogenase 396 H (81-234) U/L Total Protein 6.7 (6.4-8.2) g/dL Albumin 2.7 L (3.4-5.0) g/dL Globulin 4.0 (2.6-4.0) g/dL Albumin/Globulin Ratio 0.7 L (0.9-1.6) Urine Color YELLOW Urine Appearance CLEAR Urine pH 7.0 (5.0-8.0) Ur Specific [place] 1.010 (1.001-1.035) Urine Protein NEGATIVE (NEGATIVE) mg/dL Urine Glucose (UA) NEGATIVE (NEGATIVE) mg/dL Urine Ketones NEGATIVE (NEGATIVE) mg/dL Urine Occult Blood TRACE-INTACT H (NEGATIVE) Urine Nitrite NEGATIVE (NEGATIVE) Urine Bilirubin NEGATIVE (NEGATIVE) Urine Urobilinogen 0.2 (<2.0) EU/dL Ur Leukocyte Esterase NEGATIVE (NEGATIVE) Urine RBC 0-2 (0-2/HPF) Urine WBC 0-1 (0-5/HPF) Ur Epithelial Cells RARE (NONE-FEW) Urine Bacteria RARE (NEGATIVE) Meds: Medications Discontinued Medications Generic Name Dose Route Start Last Admin Trade Name Huseyin PRN Reason Stop Dose Admin Ceftriaxone Sodium 1 gm 07/24/19 12:55 07/24/19 13:23 Rocephin IM 07/24/19 12:56 Not Given ONETIME ONE Ceftriaxone Sodium/Dextrose 1 50 mls @ 100 mls/hr 07/24/19 13:21 07/24/19 13: 49 gm/ Premix IV 07/24/19 13:50 100 mls/hr ONETIME ONE Administration Ketorolac Tromethamine 30 mg 07/24/19 13:25 07/24/19 13:48 Toradol IVPUSH 07/24/19 13:26 30 mg ONETIME ONE Administration Lidocaine HCl 2 ml 07/24/19 12:57 07/24/19 13:24 Xylocaine-Mpf 1% INJECT 07/24/19 12:58 Not Given ONETIME ONE Methylprednisolone Sodium Succinate 125 mg 07/24/19 14:06 Solu-Medrol IVPUSH 07/24/19 14:07 ONETIME ONE Departure - Departure Time of Disposition: 14:20 Disposition: Home, Self-Care 01 Clinical Impression: Dental infection, Gestational hypertension without significant proteinuria, - Discharge Information Referrals: Yuliana Kahn DO [Primary Care Provider] - Forms: ED Department Discharge Additional Instructions: The following information is given to patients seen in the emergency department who are being discharged to home. This information is to outline your options for follow-up care. We provide all patients seen in our emergency department with a follow-up referral. The need for follow-up, as well as the timing and circumstances, are variable depending upon the specifics of your emergency department visit. If you don't have a primary care physician on staff, we will provide you with a referral. We always advise you to contact your personal physician following an emergency department visit to inform them of the circumstance of the visit and for follow-up with them and/or the need for any referrals to a consulting specialist. The emergency department will also refer you to a specialist when appropriate. This referral assures that you have the opportunity for follow-up care with a specialist. All of these measure are taken in an effort to provide you with optimal care, which includes your follow-up. Under all circumstances we always encourage you to contact your private physician who remains a resource for coordinating your care. When calling for follow-up care, please make the office aware that this follow-up is from your recent emergency room visit. If for any reason you are refused follow-up, please contact the Emergency Department at and asked to speak to the emergency department charge nurse. Primary Care [address] [place] [id number] [facility] [address] [place] [id number] [facility] [address] [place] [address] 1. Continue to take prior antibiotic as prescribed to you already as directed. Also use tylenol and ibuprofen as needed for pain and discomfort. 2. Close monitoring of blood pressure as discussed. 3. Follow up with both OBGYN and a dentist as discussed. Return to the ED as needed and as discussed. Sepsis Event Note - Evaluation Sepsis Screening Result: No Definite Risk - Focused Exam Vital Signs: Vital Signs Temp Pulse Resp BP Pulse Ox 07/24/19 13:50 87 159/85 H 94 L 07/24/19 12:50 94 166/97 H 07/24/19 12:40 97.6 F 96 18 165/95 H 96 Date Exam was Performed: 07/24/19 Time Exam was Performed: 14:14
[2019-07-24] MEDS ORDERED: cefTRIAXone 1 GM in Premix Bag 1 BAG IV ONE (13:21)
[2019-07-24] MEDS ORDERED: Ketorolac 30 MG/ML SDV IVPUSH ONE (13:25)
[2019-07-24 13:33] LABS: BLOOD UREA NITROGEN,BUN 7 mg/dL (7.0-18.0); CARBON DIOXIDE,CO2 25.5 mmol/L (21.0-32.0); CHLORIDE,CL 105 mmol/L (98-107); GLUCOSE RANDOM 85 mg/dL (74-106); POTASSIUM,K 3.6 mmol/L (3.5-5.1); SODIUM,NA 140 mmol/L (136-145)
--- NOTE | 2019-07-24 13:49 | CR ---
Chest: 2 views of the chest were obtained. Comparison: Prior chest x-ray of 03/11/18. Heart size and mediastinum are stable from previous chest x-ray. Lungs are clear and no acute parenchymal change. Bony structures are unremarkable. Impression: 1. Nothing acute is seen. 2. No change from previous study is identified. Diagnostic code #1 Study was dictated in MDT
--- NOTE | 2019-07-24 13:57 | CT ---
CT neck Technique: Multiple axial sections through the neck were obtained. Intravenous contrast was utilized. Findings: Inflammatory change is seen within the subcutaneous fat and involving the platysma muscle lateral to the left jaw. Additional soft tissue swelling is noted deep to the platysma muscle. There are are dental caries being noted within several left-sided teeth within the mandible. Most posterior tooth shows lucency around the root possibly representing a tooth abscess . No focal fluid collections are seen to indicate drainable soft tissue abscess. Thyroid gland appears normal. Prevertebral soft tissues are normal. No acute osseous finding is seen. Epiglottis is normal. Parotid and submandibular salivary glands appear within normal limits. No acute findings within the visualized mastoid or visualized paranasal sinuses are seen. Impression: 1. Dental caries within several left-sided posterior teeth with possible tooth abscess within the mandible. 2. Soft tissue swelling within the subcutaneous fat lateral to the left jaw as well as involving the platysma muscle and with additional soft tissue swelling deep to this muscle. No soft tissue abscess is seen at this time. 3. No additional abnormality is appreciated on CT study of the neck. Diagnostic code #3 Study was dictated in MDT
[2019-07-24] MEDS ORDERED: methylPREDNISolone Sodium Succinate 125 MG/2 ML SDV IVPUSH ONE (14:06)
[2019-07-24] MEDS ORDERED: Iopamidol 755 Mg/ML 100 ML Bottle IVPUSH STA (18:37)
== END 2019-07-24 14:32 | disposition home or self-care (01) ==
LOC: MW.ED 12:29
DX: O99.63 Diseases of the digestive system complicating the puerperium (principal); K04.7 Periapical abscess without sinus; O13.5 Gestational [pregnancy-induced] hypertension without significant proteinuria, complicating the puerperium; O99.215 Obesity complicating the puerperium; E66.9 Obesity, unspecified; Z91.018 Allergy to other foods
CPT/HCPCS: 36415; 70491; 71046; 80053; 81001; 83615; 84550; 85025; 96365; 96375; 99284; J0696; J1885; J2930; Q9967